=== PATIENT | male | born 1935 | race Caucasian/White ===

== ENCOUNTER 2017-09-11 01:25 | Observation (INO) | payer OTHER ==
[~2017-09-11] VITALS: Ht 175.3 cm; Wt 73.4 kg
[~2017-09-11 01:25] MED LIST: ACET300T3 PO; ASCO500T16 PO; ASPI1TAB83; FLUT0.0529 NAE; LORA10TA51 PO; MECL1TAB40 PO; MULT-506 PO; NUTRCAP PO; NUTRTAB48 PO
[2017-09-11 02:02] LABS: BASO % 0.3 %; BASO ABS # 0.03 K/uL (0-0.2); EOS % 2.1 %; EOS ABS # 0.19 K/uL (0-0.5); HEMATOCRIT 43.6 % (42-52); HEMOGLOBIN 14.7 g/dL (14.0-18.0); IG# 0.02 K/uL (0.00-0.02); LYMPH % 26.9 %; LYMPH ABS # 2.39 K/uL (1.2-3.4); MEAN CELL VOLUME 99.8 fL (80-100); MEAN CORPUSCULAR HEMOGLOBIN 33.6 pg (25-34); MEAN CORPUSCULAR HGB CONC 33.7 g/dl (32-36); MEAN PLATELET VOLUME 10.6 fL (7.4-10.4); MONO % 9.1 %; MONO ABS # 0.81 K/uL (0.11-0.59); NEUT % 61.4 %; NEUT ABS # 5.44 K/uL (1.4-6.5); PLATELET COUNT 156 K/uL (130-400); RED CELL DISTRIBUTION WIDTH CV 12.3 % (11.5-14.5); RED CELL DISTRIBUTION WIDTH SD 44.9 fL (36.4-46.3); WHITE BLOOD COUNT 8.88 K/uL (4.8-10.8)
[2017-09-11 02:10] LABS: ALBUMIN 3.8 gm/dl (3.4-5.0); CALCIUM 8.7 mg/dl (8.5-10.1); CREATININE 1.38 mg/dl (0.60-1.40); POTASSIUM 3.6 mmol/L (3.5-5.1)
[2017-09-11 02:15] LABS: TOTAL PROTEIN 7.6 gm/dl (6.4-8.2)
[2017-09-11] MEDS ORDERED: SODIUM CHLORIDE 0.9% 1000ML 1,000 ML IV STA (02:18)
[2017-09-11] MEDS ORDERED: OPTIRAY 320 IV PRN (02:30)
[2017-09-11] MEDS ORDERED: ASPIRIN/ALUM/MAGNES/CAL CARB 325 MG TAB PO STA (04:26)
--- NOTE | 2017-09-11 04:29 | EMERGENCY ROOM VISIT NOTE ---
History Report prepared by Raffaele: Ab Mckeon Under the Supervision of: Dr. Faby Manzano D.O. First contact with patient: 01:38 Chief Complaint: SYNCOPE Stated Complaint: SYNCOPE Nursing Triage Summary: Patient arrived ALS for evaluation s/p syncope. Patient ran a 5K at 1800 and reports he tripped over a cone and fell onto knees. Patient has abrasions to bilateral knees. Patient ate a richard bar and drank gatorade afterward. Patient then went home and ate and drank a beer. Patient reports he looked out the window at some fireworks and doesn't remember after until his found him sitting on the floor. Patient reports he had a leg cramp earlier and on the way here as well as feeling thirsty. History of Present Illness The patient is a 82 year old male who presents to the Emergency Room with complaints of syncopal event. Patient states he was feeling his normal state of health earlier today and he ran a 5K. Patient states he had no symptoms while running. States at one point he did trip over a cone set of the race and fell onto his knees, denies any other trauma, denies head injury or LOC at that time. Patient states he got up and finished rest of the race and afterwards drinking Gatorade and ate a richard Dumont. States after that he went home was feeling in his usual state of health eating and drinking normally with no symptoms. States that in the evening about the time that he had come to bed he began to her some loud noises which she thought were perhaps fireworks. He states he got up went to the window was looking out the next thing he remembers he was sitting on the floor. Upon their arrival patient's , she states she will recent getting up to go to the window and remembers hearing a thud and went to find him sitting on the floor as well. She helped him get up and which chair and he appeared to be leaning forward as if trying to put his head between his legs, and then seemed to suddenly relaxer will not respond to her voice. He was at that point the called 911. By the time of EMS arrival, patient was awake and alert with no complaints and initially refused ambulance transport. Review of Systems See HPI for pertinent positives & negatives. A total of 10 systems reviewed and were otherwise negative. Past Medical & Surgical Medical Problems: (1) bph (2) occipital fracture Family History No pertinent family history stated. Social History Smoking Status: Never Smoker Drug Use: none Marital Status: Housing Status: lives with family Current/Historical Medications Scheduled Escitalopram Oxalate (Lexapro), 5 MG PO DAILY Scheduled PRN Ipratropium [place] (Nasal) (Ipratropium [place]), 2 SPRAYS BRIAN QID PRN for rhinitis Allergies Coded Allergies: No Known Allergies (Unverified , 09/11/17) Physical Exam Vital Signs Date Time Temp Pulse Resp B/P (MAP) Pulse Ox O2 Delivery O2 Flow Rate FiO2 09/11/17 05:16 53 18 114/63 98 Room Air 09/11/17 02:26 51 18 121/72 98 Room Air 09/11/17 01:37 45 09/11/17 01:28 96 Room Air 09/11/17 01:28 36.4 54 18 138/88 96 Room Air Physical Exam GENERAL: alert, well appearing, well nourished, no distress, non-toxic EYE EXAM: normal conjunctiva, PERRL and EOM's grossly intact OROPHARYNX: no exudate, no erythema, lips, buccal mucosa, and tongue normal and mucous membranes are moist NECK: supple, no nuchal rigidity, no adenopathy, non-tender LUNGS: Clear to auscultation. Normal chest wall mechanics, no wheezes/rhonchi/ rales HEART: no murmurs, S1 normal and S2 normal ABDOMEN: abdomen soft, non-tender, normo-active bowel sounds, no masses, no rebound or guarding. BACK: Back is symmetrical on inspection and there is no deformity, no midline tenderness, no CVA tenderness. SKIN: no rashes and no bruising UPPER EXTREMITIES: upper extremities are grossly normal. Normal range of motion , normal pulses. LOWER EXTREMITIES: No pitting edema. Normal range of motion, normal pulses, superficial abrasions noted bilateral knees and left soler. NEURO EXAM: Normal sensorium, cranial nerves II-XII grossly intact, normal speech, no gross weakness of arms, no [gross] weakness of legs. No drift. Finger to nose intact. Gross sensation intact. Medical Decision & Procedures ER Provider Diagnostic Interpretation: One View Chest X-ray interpreted by me: Mild cardiomegaly. No effusions. Mildly increased interstitial markings bilaterally. Prominent aortic knob. No consolidation. CT results per statrad and my review. CT HEAD: No ICH, mass effect or edema. No evidence of acute cortical stroke. Periventricular small vessel ischemic change. No midline shift or hydrocephalus. Diffuse parenchymal atrophy. Visualized sinuses and mastoid air cells are clear. CT CHEST With Contrast: No evidence of PE. Lungs are clear. No pleural effusions. No adenopathy. Heart is enlarged. No pericardial effusion. Multivessel coronary calcifications. Aorta is unremarkable. Exophytic right renal cyst. Laboratory Results 09/11/17 01:37 Red Blood Count 4.37, Mean Corpuscular Volume 99.8, Mean Corpuscular Hemoglobin 33.6, Mean Corpuscular Hemoglobin Concent 33.7, Mean Platelet Volume 10.6, Neutrophils (%) (Auto) 61.4, Lymphocytes (%) (Auto) 26.9, Monocytes (%) (Auto) 9.1, Eosinophils (%) (Auto) 2.1, Basophils (%) (Auto) 0.3, Neutrophils # (Auto) 5.44, Lymphocytes # (Auto) 2.39, Monocytes # (Auto) 0.81, Eosinophils # (Auto) 0.19, Basophils # (Auto) 0.03 09/11/17 01:37 Test 09/11/17 01:36 09/11/17 01:37 09/11/17 04:10 Bedside D-Dimer > 450 ng/mlFEU (0-450) Bedside Troponin I 0.050 ng/ml (0-0.045) White Blood Count 8.88 K/uL (4.8-10.8) Red Blood Count 4.37 M/uL (4.7-6.1) Hemoglobin 14.7 g/dL (14.0-18.0) Hematocrit 43.6 % (42-52) Mean Corpuscular Volume 99.8 fL (80-100) Mean Corpuscular Hemoglobin 33.6 pg (25-34) Mean Corpuscular Hemoglobin Concent 33.7 g/dl (32-36) Platelet Count 156 K/uL (130-400) Mean Platelet Volume 10.6 fL (7.4-10.4) Neutrophils (%) (Auto) 61.4 % Lymphocytes (%) (Auto) 26.9 % Monocytes (%) (Auto) 9.1 % Eosinophils (%) (Auto) 2.1 % Basophils (%) (Auto) 0.3 % Neutrophils # (Auto) 5.44 K/uL (1.4-6.5) Lymphocytes # (Auto) 2.39 K/uL (1.2-3.4) Monocytes # (Auto) 0.81 K/uL (0.11-0.59) Eosinophils # (Auto) 0.19 K/uL (0-0.5) Basophils # (Auto) 0.03 K/uL (0-0.2) RDW Standard Deviation 44.9 fL (36.4-46.3) RDW Coefficient of Variation 12.3 % (11.5-14.5) Immature Granulocyte % (Auto) 0.2 % Immature Granulocyte # (Auto) 0.02 K/uL (0.00-0.02) Prothrombin Time 10.6 SECONDS (9.0-12.0) Prothromb Time International Ratio 1.0 (0.9-1.1) Anion Gap 7.0 mmol/L (3-11) Est Creatinine Clear Calc Drug Dose 42.0 ml/min Estimated GFR () 55.2 Estimated GFR (Non- 47.6 BUN/Creatinine Ratio 26.7 (10-20) Calcium Level 8.7 mg/dl (8.5-10.1) Magnesium Level 2.4 mg/dl (1.8-2.4) Total Bilirubin 0.8 mg/dl (0.2-1) Aspartate Amino Transf (AST/SGOT) 32 U/L (15-37) Alanine Aminotransferase (ALT/SGPT) 25 U/L (12-78) Alkaline Phosphatase 105 U/L (45-117) Pro-B-Type Natriuretic Peptide 361 pg/ml (0-1800) Total Protein 7.6 gm/dl (6.4-8.2) Albumin 3.8 gm/dl (3.4-5.0) Globulin 3.8 gm/dl (2.5-4.0) Albumin/Globulin Ratio 1.0 (0.9-2) Urine Color YELLOW Urine Appearance CLEAR (CLEAR) Urine pH 5.0 (4.5-7.5) Urine Specific [place] 1.031 (1.000-1.030) Urine Protein NEG (NEG) Urine Glucose (UA) NEG (NEG) Urine Ketones NEG (NEG) Urine Occult Blood NEG (NEG) Urine Nitrite NEG (NEG) Urine Bilirubin NEG (NEG) Urine Urobilinogen NEG (NEG) Urine Leukocyte Esterase NEG (NEG) Laboratory results per my review. Medications Administered Medications (Trade) Dose Ordered Sig/Claire Route Start Time Stop Time Status Last Admin Dose Admin Sodium Chloride 1,000 ml @ 999 mls/hr Q1H1M STAT IV 09/11/17 02:18 09/11/17 03:18 DC 09/11/17 02:25 999 MLS/HR Aspirin/Aluminum/ Magnesium/Ca Carb (Ascriptin Tab) 325 mg NOW STAT PO 09/11/17 04:26 09/11/17 04:28 DC 09/11/17 05:16 325 MG ECG Indication: syncope Rate (beats per minute): 49 Rhythm: sinus bradycardia Findings: no acute ischemic change, no ectopy, other (Normal axis. Normal intervals. ) Comparison ECG Date: February 25, 2013 Change: no significant change ED Course 0132: The patient was evaluated in room B8. A complete history and physical exam was performed. 0440: Upon reevaluation, the patient is resting comfortably. I discussed the findings and the treatment plan with the patient. He expresses agreement and understanding. [facility] The patient will be evaluated for further management. Medical Decision Differential diagnosis: Etiologies such as vasovagal event, infection, hypoglycemia, electrolyte abnormalities, cardiac sources, intracerebral event, toxicologic, neurologic, as well as others were entertained. Patient well-appearing here and without complaint. While troponin may be secondary to recent vigorous exercise, concern given patient's age and coronary artery calcifications noted on CAT scan. Patient with a normal, nonfocal neuro exam bedside, doubt sick be related to CVA, dissection, cerebellar infarct or bleed. Patient with no other symptoms or findings to suggest occult infectious etiology. Doubt related to trauma from mild fall, only superficial abrasions noted on patient's bilateral knees. No dysrhythmias noted on telemetry. Patient's labs otherwise stable and reassuring, and imaging otherwise unremarkable. Patient verbalized understanding of all results was agreeable with plan. Medication Reconcilliation Current Medication List: was personally reviewed by me Blood Pressure Screening Patient's blood pressure: Normal blood pressure Blood pressure disposition: Did not require urgent referral Consults Time Called: [phone] Consulting Physician: Dr. Shauna Abraham Hospitalist Returned Call: [phone] I reviewed the patient's case with Dr. Villatoro. Bird will evaluate the patient for further management. Impression Primary Impression: Syncope Additional Impression: Elevated troponin Scribe Attestation The scribe's documentation has been prepared under my direction and personally reviewed by me in its entirety. I confirm that the note above accurately reflects all work, treatment, procedures, and medical decision making performed by me. Departure Information Dispostion Being Evaluated By Hospitalist Referrals James Hernandez M.D. (PCP) Patient Instructions My [facility] Problem Qualifiers Primary Impression: Syncope Syncope type: unspecified Qualified Codes: R55 - Syncope and collapse
[2017-09-11] MEDS ORDERED: ESCI1TAB6 PO (05:24)
[2017-09-11] MEDS ORDERED: IPRA0.06 NAE (05:24)
[2017-09-11] MEDS ORDERED: ONDANSETRON INJ 2 MG/ML 2 ML VIAL IV PRN (06:30)
[2017-09-11] MEDS ORDERED: ACETAMINOPHEN 325 MG TAB PO PRN (06:30)
--- NOTE | 2017-09-11 06:37 | History and Physical ---
History & Physical Date & Time of Service: Sep 11, 2017 at 06:27 Chief Complaint: Syncope Primary Care Physician: James Hernandez M.D. History of Present Illness Source: patient, clinic records 82 year old male with history of Chronic Rhinitis, BPH, Vertigo, presenting with syncope. Follows with Dr. Hernandez for PCP. Patient is quite active and runs 3x a week. Earlier today, he participated in a 5k run. During the event, he tripped on a cone and sustained abrasions on bilateral knees. He had a Jhonny bar and Gatorade after. He went home and had dinner- sandwich, orange and had a beer after. While sleeping, he was awakened by leg cramps. He stood up and went around the bed to go to the window to watch the fireworks. Patient then apparently passed out and was found by his on the floor. Patient denies dizziness, chest pain, dyspnea, palpitations, before or after the event. Denies confusion. He was then brought to the ER. At the ER, patient had stable BP, Hr 54, sinus rhythm, no EKG changes. Troponin noted to be 0.05. D dimer > 450. On exam, patient seen resting in bed, comfortable. Denies any active symptoms except mild knee pain on the abrasions. Past Medical/Surgical History Medical Problems: (1) bph Status: Chronic Family History Mother- CVA Social History Smoking Status: Never Smoker Smokeless Tobacco Use: No Alcohol Use: none Drug Use: none Marital Status: Immunizations History of Influenza Vaccine: Yes History of Tetanus Vaccine?: Yes History of Pneumococcal: Yes History of Hepatitis B Vaccine: Unknown Allergies Coded Allergies: No Known Allergies (Unverified , 09/11/17) Home Medications Scheduled Escitalopram Oxalate (Lexapro), 5 MG PO DAILY Scheduled PRN Ipratropium [place] (Nasal) (Ipratropium [place]), 2 SPRAYS BRIAN QID PRN for rhinitis Review of Systems Constitutional- no fever; no weight loss Eyes- no acute visual changes ENT- no sinus drainage; no pharyngitis Pulmonary- no cough, no wheezing, no shortness of breath Cardiac- no chest pain, no palpitations, no orthopnea, no dependent edema GI- no nausea, no vomiting, no diarrhea, no melena, no hematochezia - no dysuria, no hematuria Musculoskeletal- no arthralgias, no myalgias Derm- no rashes, no new skin lesions, no changing skin lesions Hematologic- no unusual bruising, no unusual bleeding Lymphatics- no adenopathy Endocrine- no polyuria or polydipsia; no heat or cold intolerance Neuro- no headaches, no focal neurologic symptoms Psych- no anxiety, no depression Physical Exam Vital Signs Date Time Temp Pulse Resp B/P (MAP) Pulse Ox O2 Delivery O2 Flow Rate FiO2 09/11/17 05:16 53 18 114/63 98 Room Air 09/11/17 02:26 51 18 121/72 98 Room Air 09/11/17 01:37 45 09/11/17 01:28 96 Room Air 09/11/17 01:28 36.4 54 18 138/88 96 Room Air General Appearance: WD/WN, no apparent distress Head: normocephalic, atraumatic Eyes: normal inspection, PERRL, EOMI, sclerae normal ENT: normal ENT inspection, hearing grossly normal, pharynx normal Neck: supple, no adenopathy, thyroid normal, no JVD, trachea midline Respiratory/Chest: chest non-tender, lungs clear, normal breath sounds, no respiratory distress, no accessory muscle use Cardiovascular: regular rate, rhythm, no edema, no JVD, no murmur, normal peripheral pulses Abdomen/GI: normal bowel sounds, non tender, soft Back: normal inspection, no CVA tenderness Extremities/Musculoskelatal: normal inspection, no calf tenderness, normal capillary refill, no pedal edema, normal range of motion, non-tender Neurologic/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: 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 tested, no motor/sensory deficits, alert, normal reflexes, oriented x 3 Skin: normal color, warm/dry, no rash Lymphatic: no adenopathy Diagnostics Laboratory Results Results Past 24 Hours Test 09/11/17 01:36 09/11/17 01:37 09/11/17 04:10 Range/Units Bedside D-Dimer > 450 0-450 ng/mlFEU Bedside Troponin I 0.050 0-0.045 ng/ml White Blood Count 8.88 4.8-10.8 K/uL Red Blood Count 4.37 4.7-6.1 M/uL Hemoglobin 14.7 14.0-18.0 g/dL Hematocrit 43.6 42-52 % Mean Corpuscular Volume 99.8 80-100 fL Mean Corpuscular Hemoglobin 33.6 25-34 pg Mean Corpuscular Hemoglobin Concent 33.7 32-36 g/dl Platelet Count 156 130-400 K/uL Mean Platelet Volume 10.6 7.4-10.4 fL Neutrophils (%) (Auto) 61.4 % Lymphocytes (%) (Auto) 26.9 % Monocytes (%) (Auto) 9.1 % Eosinophils (%) (Auto) 2.1 % Basophils (%) (Auto) 0.3 % Neutrophils # (Auto) 5.44 1.4-6.5 K/uL Lymphocytes # (Auto) 2.39 1.2-3.4 K/uL Monocytes # (Auto) 0.81 0.11-0.59 K/uL Eosinophils # (Auto) 0.19 0-0.5 K/uL Basophils # (Auto) 0.03 0-0.2 K/uL RDW Standard Deviation 44.9 36.4-46.3 fL RDW Coefficient of Variation 12.3 11.5-14.5 % Immature Granulocyte % (Auto) 0.2 % Immature Granulocyte # (Auto) 0.02 0.00-0.02 K/uL Prothrombin Time 10.6 9.0-12.0 SECONDS Prothromb Time International Ratio 1.0 0.9-1.1 Sodium Level 140 136-145 mmol/L Potassium Level 3.6 3.5-5.1 mmol/L Chloride Level 103 98-107 mmol/L Carbon Dioxide Level 30 21-32 mmol/L Anion Gap 7.0 3-11 mmol/L Blood Urea Nitrogen 37 7-18 mg/dl Creatinine 1.38 0.60-1.40 mg/dl Est Creatinine Clear Calc Drug Dose 42.0 ml/min Estimated GFR () 55.2 Estimated GFR (Non- 47.6 BUN/Creatinine Ratio 26.7 10-20 Random Glucose 75 70-99 mg/dl Calcium Level 8.7 8.5-10.1 mg/dl Magnesium Level 2.4 1.8-2.4 mg/dl Total Bilirubin 0.8 0.2-1 mg/dl Aspartate Amino Transf (AST/SGOT) 32 15-37 U/L Alanine Aminotransferase (ALT/SGPT) 25 12-78 U/L Alkaline Phosphatase 105 45-117 U/L Pro-B-Type Natriuretic Peptide 361 0-1800 pg/ml Total Protein 7.6 6.4-8.2 gm/dl Albumin 3.8 3.4-5.0 gm/dl Globulin 3.8 2.5-4.0 gm/dl Albumin/Globulin Ratio 1.0 0.9-2 Urine Color YELLOW Urine Appearance CLEAR CLEAR Urine pH 5.0 4.5-7.5 Urine Specific [place] 1.031 1.000-1.030 Urine Protein NEG NEG Urine Glucose (UA) NEG NEG Urine Ketones NEG NEG Urine Occult Blood NEG NEG Urine Nitrite NEG NEG Urine Bilirubin NEG NEG Urine Urobilinogen NEG NEG Urine Leukocyte Esterase NEG NEG Diagnostic Radiology CT chest: no PE per initial read CT head: no acute findings per initial read Impression Assessment and Plan 82 year old male with history of Chronic Rhinitis, BPH, Vertigo, presenting with syncope. SYNCOPE POSSIBLE ORTHOSTASIS - check orthostatic VS IV NSS R/O ARRHYTHMIA - check echo other work up: - no PE per initial CT chest read ELEVATED D DIMER - no PE per initial CT chest read - Leg Doppler US: pending MILD TROPONIN ELEVATION - doubt ACS no cardiac symptoms - ff up cardiac markers Echo DVT PROPHYLAXIS SCDs FULL CODE PER PATIENT ANTICIPATE D/C HOME WHEN MEDICALLY STABLE FF UP WITH DR. HERNANDEZ FOR PCP VTE Prophylaxis Given or contraindicated: SCD's
--- NOTE | 2017-09-11 07:35 | DIAGNOSTIC IMAGING REPORT ---
ULTRASOUND LEFT LOWER EXTREMITY VENOUS CLINICAL HISTORY: Left leg pain. Syncope. COMPARISON STUDY: No priors. TECHNIQUE: Real-time, grayscale, and color Doppler sonography of the deep veins of the left lower extremity was performed from the inguinal crease to the calf. Compression and augmentation were utilized. FINDINGS: There is no sonographic evidence of deep venous thrombosis identified in the left lower extremity. The common femoral, superficial femoral, and popliteal veins are patent and normally compressible. The greater saphenous vein and the profunda femoris vein at the junction with the common femoral vein are clear. The visualized calf veins are patent. IMPRESSION: There is no sonographic evidence of deep venous thrombosis identified in the left lower extremity. Electronically signed by: Jamir Ybarra M.D. 09/11/2017 7:34 AM Dictated Date/Time: 09/11/2017 7:34 AM
--- NOTE | 2017-09-11 07:54 | DIAGNOSTIC IMAGING REPORT ---
CT ANGIOGRAM OF THE CHEST CLINICAL HISTORY: Syncope. COMPARISON STUDY: Chest x-ray dated 09/11/2017. TECHNIQUE: Following the IV administration of 91 cc of Optiray 320, CT angiogram of the chest was performed from the upper abdomen to the thoracic inlet utilizing the pulmonary embolus protocol. Images are reviewed in the axial, sagittal, and coronal planes. 3-D MIPS images are created and assessed. IV contrast was administered without complication. A dose lowering technique was utilized adhering to the principles of ALARA. The Examination is modestly degraded by motion artifact. CT DOSE: 311.16 mGy.cm FINDINGS: Thyroid: Imaged portions of the thyroid gland are normal in size and attenuation. Thoracic aorta: The thoracic aorta is normal in caliber and demonstrates standard 3-vessel arch anatomy. The thoracic aorta is not well opacified. Pulmonary vasculature: The main pulmonary arteries are dilated consistent with pulmonary artery hypertension. There are no filling defects identified in main, lobar, or segmental pulmonary branches to suggest pulmonary embolus. Heart: The heart is markedly enlarged and without pericardial effusion. The coronary arteries are densely calcified. Lungs and pleural spaces: Evaluation of the lung parenchyma is degraded by motion artifact. The trachea and central airways are clear. Dependent atelectasis is noted. There is no airspace consolidation typical for pneumonia or pleural effusion. Mediastinum: There is no mediastinal lymphadenopathy. Lizz: Clear. Axillae: There is no axillary lymphadenopathy. Upper abdomen: There is a small hiatal hernia. A 3 cm cyst arises from the upper pole of the right kidney. Reflux of contrast into the IVC and hepatic veins suggests cardiac dysfunction. Skeletal structures: The skeletal structures are osteopenic. Mild degenerative change is noted throughout the thoracic spine and in the shoulders. No lytic or blastic bony lesions are seen. IMPRESSION: 1. There is no evidence of pulmonary embolus in the main, lobar, or segmental pulmonary arteries. 2. Marked cardiomegaly. 3. No airspace consolidation is identified typical for pneumonia and there is no pleural effusion. 4. Additional findings as above. Electronically signed by: Jamir Ybarra M.D. 09/11/2017 7:53 AM Dictated Date/Time: 09/11/2017 7:48 AM
[2017-09-11 08:03] VITALS: BP 130/76; PULSE 50; TEMP 36.3; O2SAT 98
[2017-09-11 08:06] VITALS: BP 130/76; PULSE 50; TEMP 36.3; O2SAT 98; Ht 175.3 cm; Wt 73.4 kg
[2017-09-11 08:36] LABS: CKMB 6.6 ng/ml (0.5-3.6)
[2017-09-11] MEDS ORDERED: NSS + 20MEQ KCL 1000ML 1,000 ML IV SCH (09:00)
[2017-09-11] MEDS: ESCITALOPRAM OXALATE 10 MG TAB PO SCH (09:04)
--- NOTE | 2017-09-11 09:40 | DIAGNOSTIC IMAGING REPORT ---
CT SCAN OF THE BRAIN WITHOUT IV CONTRAST CLINICAL HISTORY: Syncope. COMPARISON STUDY: CT of the brain dated 02/25/2013. TECHNIQUE: Unenhanced axial CT scan of the brain is performed from the vertex to the skull base. A dose lowering technique was utilized adhering to the principles of ALARA. CT DOSE: 614.27 mGy.cm FINDINGS: Brain parenchyma: There are age-related involutional changes noting moderate subcortical and periventricular microangiopathic change. There is no hemorrhage, mass effect, or evidence of acute territorial ischemia by CT criteria. Luis-white matter is preserved. No extra-axial fluid collection is seen. Ventricles, sulci, cisterns: Prominent secondary to involutional change. Intracranial vasculature: There is atherosclerotic calcification of the cavernous carotid and vertebral arteries. Calvarium: The skeletal structures are osteopenic. No depressed calvarial fracture is seen. Sinuses and mastoids: The visualized paranasal sinuses are clear. The mastoid air cells are well pneumatized. Orbits: The bony orbits are grossly intact. There are bilateral ocular lens implants. IMPRESSION: There is no hemorrhage, mass effect, or evidence of acute territorial ischemia by CT criteria. Electronically signed by: Jamir Ybarra M.D. 09/11/2017 9:39 AM Dictated Date/Time: 09/11/2017 9:37 AM
[2017-09-11] MEDS ORDERED: POTASSIUM CHLORIDE 20 MEQ TABCR PO ONE (10:15)
--- NOTE | 2017-09-11 10:23 | DIAGNOSTIC IMAGING REPORT ---
SINGLE VIEW CHEST CLINICAL HISTORY: Syncope. FINDINGS: An AP, portable, upright chest radiograph is obtained. No prior studies are available for comparison at the time of dictation. The examination is degraded by portable technique and patient rotation. The cardiomediastinal heart is enlarged and there is atherosclerotic calcification of the thoracic area. There is prominence of the central pulmonary vessels. Minimal bibasilar atelectasis is observed. No airspace consolidation or large pleural effusion is identified. No pneumothorax is seen. The skeletal structures are osteopenic. The bony thorax is grossly intact. IMPRESSION: 1. Cardiomegaly with prominence of the central pulmonary vessels. Correlate clinically for evidence of mild congestive failure. 2. No airspace consolidation or large pleural effusion is identified. Electronically signed by: Jamir Ybarra M.D. 09/11/2017 10:21 AM Dictated Date/Time: 09/11/2017 10:21 AM
[2017-09-11 11:17] VITALS: BP_SYST 110; BP_SYST 120; BP_SYST 130; BP_DIAS 65; BP_DIAS 71; BP_DIAS 74; PULSE 47; PULSE 60; TEMP 36.5; O2SAT 97
[2017-09-11] MEDS ORDERED: IV FLUIDS COMPLETED PRN (12:45)
--- NOTE | 2017-09-11 14:51 | ECHOCARDIOGRAM REPORT ---
*NOTICE TO RECEIVING CONSTITUTION PARTY AGENCY This information is strictly Confidential and protected under [place] law. [place] law prohibits you from making any further disclosure of this information unless further disclosure is expressly permitted by the written consent of the person to whom it pertains or is authorized by law. A general authorization for the release of medical or other information is not sufficient for this purpose. Hospital accepts no responsibility if the information is made available to any other person, INCLUDING THE PATIENT. Interpretation Summary * Name: HUMERA HERNADEZ Study Date: 09/11/2017 01:23 PM BP: 120/71 mmHg * Patient Location: [facility] HR: 52 * : 1935 (M/d/yyyy) Gender: Male Height: 69 in * Age: 82 yrs Ethnicity: [place] Weight: 164 lb * Ordering Physician: Los Villatoro * Performed By: Shannon Davila RDCS * * Reason For Study: SYNCOPE * BSA: 1.9 m2 * The study was technically adequate. * -- Conclusions -- * Sinsus bradycardia at 50 bpm was present during the echocardiogram. * The left ventricle is normal in size. * There is moderate concentric left ventricular hypertrophy. * The left ventricular wall motion is normal. * The LV Ejection Fraction = 60-65%. * The right ventricle is normal in size and function. * The right atrium is mildly dilated. * Mild aortic regurgitation. * There is mild tricuspid regurgitation. * Doppler findings do not suggest pulmonary hypertension. * There is mild mitral regurgitation. Procedure Details * A complete two-dimensional transthoracic echocardiogram was performed (2D, M-mode, Doppler and color flow Doppler). Left Ventricle * The left ventricle is normal in size. * There is moderate concentric left ventricular hypertrophy. * Left ventricular systolic function is normal. * Ejection Fraction = 60-65%. * The left ventricular wall motion is normal. Right Ventricle * The right ventricle is normal in size and function. * The right ventricular systolic function is normal as assessed by tricuspid annular plane systolic excursion (TAPSE) (normal >1.5 cm). Atria * The left atrial size is normal. * The right atrium is mildly dilated. * There is no evidence of atrial septal defect, but resolution does not allow assessment for a patent foramen ovale. Mitral Valve * The mitral valve is normal. * There is no mitral valve stenosis. * There is mild mitral regurgitation. Tricuspid Valve * The tricuspid valve is normal. * There is no tricuspid stenosis. * There is mild tricuspid regurgitation. * Doppler findings do not suggest pulmonary hypertension. Aortic Valve * The aortic valve is trileaflet. * Aortic stenosis is absent. * Mild aortic regurgitation. Pulmonic Valve * The pulmonary valve is not well seen, but the Doppler examination is normal without significant regurgitation or stenosis. Great Vessels * The aortic root and proximal ascending aorta are normal sized. Pericardium/Pleural * There is no pericardial effusion. Great Vessels * Normal inferior vena cava diameter and respiratory variation suggests normal central venous pressure. Left Ventricular Diastolic Function * Grade I diastolic dysfunction, (abnormal relaxation pattern). MMode 2D Measurements and Calculations IVSd 1.3 cm IVSs 1.8 cm LVIDd 4.4 cm LVIDs 2.8 cm LVPWd 1.4 cm LVPWs 1.7 cm IVS/LVPW 0.92 FS 36.2 % EDV(Teich) 86.7 ml ESV(Teich) 29.4 ml EF(Teich) 66.1 % EDV(cubed) 84.0 ml ESV(cubed) 21.8 ml EF(cubed) 74.0 % % IVS thick 44.7 % % LVPW thick 25.3 % LV mass(C)d 221.5 grams LV mass(C)dI 116.7 grams/m\S\2 LV mass(C)s 198.5 grams LV mass(C)sI 104.5 grams/m\S\2 SV(Teich) 57.4 ml SI(Teich) 30.2 ml/m\S\2 SV(cubed) 62.2 ml SI(cubed) 32.8 ml/m\S\2 Ao root diam 3.2 cm Ao root area 8.2 cm\S\2 LA dimension 4.0 cm LA/Ao 1.2 LVAd ap4 29.5 cm\S\2 LVLd ap4 7.7 cm EDV(MOD-sp4) 91.4 ml EDV(sp4-el) 96.0 ml LVAs ap4 15.2 cm\S\2 LVLs ap4 6.6 cm ESV(MOD-sp4) 30.1 ml ESV(sp4-el) 29.4 ml EF(MOD-sp4) 67.1 % EF(sp4-el) 69.4 % LVAd ap2 28.0 cm\S\2 LVLd ap2 7.8 cm EDV(MOD-sp2) 85.9 ml EDV(sp2-el) 85.6 ml LVAs ap2 14.9 cm\S\2 LVLs ap2 7.1 cm ESV(MOD-sp2) 31.1 ml ESV(sp2-el) 26.6 ml EF(MOD-sp2) 63.8 % EF(sp2-el) 69.0 % LVLd %diff 1.2 % EDV(MOD-bp) 87.8 ml LVLs %diff 6.1 % ESV(MOD-bp) 29.3 ml EF(MOD-bp) 66.6 % SV(MOD-sp4) 61.3 ml SI(MOD-sp4) 32.3 ml/m\S\2 SV(MOD-sp2) 54.8 ml SI(MOD-sp2) 28.9 ml/m\S\2 SV(MOD-bp) 58.5 ml SI(MOD-bp) 30.8 ml/m\S\2 SV(sp4-el) 66.6 ml SI(sp4-el) 35.1 ml/m\S\2 SV(sp2-el) 59.0 ml SI(sp2-el) 31.1 ml/m\S\2 Doppler Measurements and Calculations MV E max rich 58.6 cm/sec MV A max rich 54.4 cm/sec MV E/A 1.1 MV dec time 0.56 sec Ao V2 max 169.9 cm/sec Ao max PG 11.5 mmHg Ao max PG (full) 4.5 mmHg AI max rich 353.3 cm/sec AI max PG 49.9 mmHg AI dec slope 118.6 cm/sec\S\2 AI P1/2t 872.4 msec LV V1 max PG 7.1 mmHg LV V1 max 132.9 cm/sec TR max rich 272.4 cm/sec
[2017-09-11 15:41] VITALS: BP 112/72; PULSE 48; TEMP 36.3; O2SAT 97
--- NOTE | 2017-09-11 15:42 | Cardiology Consultation ---
Cardiology Consultation Date of Consultation: Sep 11, 2017 History of Present Illness Hernandez Davis is a 82 year old male seen in cardiology consultation per the request of Dr. Camilo Saavedra for the evaluation of syncope and mild elevation in cardiac isoenzymes. The patient's primary care provider is Dr. James Hernandez. He has not previously followed with cardiology. The patient describes himself as being very physically active. He runs 3 days per week typically completing 4-5 miles in a one-hour session. He has completed marathons in the past and computed [employer] in 1987. Last evening he was in his normal state of health when he participated in the First Night 5K run in [facility]. The weather conditions were very cold. Early on the wrong he apparently tripped over a traffic code suffered abrasions to his lower legs bilaterally. He was helped up by bystanders continued. He stated that the fall weight loses rhythm but overall did not feel that he was in significant distress. He finished the running about 40 minutes which was a few minutes slower than last year. He described no chest discomfort or shortness of breath. He does not believe he passed out while running but rather tripped on the cones. He had a Gatorade and a sports bar after the run and then returned home and had dinner and a beer. He states he woke up at about midnight with severe cramping in his left calf muscle. He had to get up out of bed to try to walk this off by that time he recalls watching the fireworks outside of his window. He states with walking his legs felt a little bit better. His spouse then recalls hearing him moaning and calling to her from another room, she found him on the ground in her bedroom and he lost consciousness for a few moments before spontaneously awakening. He was brought to the emergency room by EMS. Initial EKG on 09/11/2017 at 1:28 AM revealed sinus bradycardia at 49 bpm with mild nonspecific ST abnormality. Overall the tracing was unchanged compared to her prior 2012. Repeat EKG this morning at 954 revealed sinus bradycardia cardiac 56 bpm, left ventricular hypertrophy by voltage criteria was noted. His initial [id number] troponin was mildly elevated at 0.05 with subsequent mild elevation at 7:52 AM of 0.59 ng/ml with elevated CPK of 575 units per liter. A repeat set of cardiac enzymes at 1423 this afternoon revealed improvement in the troponin to 0.31 ng/ml however the CPK remained elevated at [address] of the chest revealed no evidence of pulmonary embolism, the heart was noted to be enlarged by CT criteria with noted mild dilatation of the pulmonary arteries. The coronary arteries were noted to be densely calcified. I reviewed the images myself and dense coronary artery calcification is noted throughout the course of the left anterior descending artery artery and circumflex. The right coronary artery is not well-visualized. Past Medical/Surgical History Problem List: Medical Problems: (1) bph (2) occipital fracture History Past Medical History: . Benign prostatic hypertrophy 2. Head trauma occurred in 2012 when he was struck by a dog while he was running with a resultant fall. Past Surgical History: Remote tonsillectomy Dental work Social History: he is a nonsmoker. Family History: He believes both of his parents had strokes in old age. No known heart disease. Review Of Systems See above for pertinent positives & negatives. A total of 10 systems reviewed and were otherwise negative. Allergies Coded Allergies: No Known Allergies (Unverified , 09/11/17) Medications Reported Home Medications Medications Dose Route/Sig Max Daily Dose Days Date Category Lexapro (Escitalopram Oxalate) 5 Mg Tab 5 Mg PO DAILY 09/11/17 Reported Ipratropium [place] (Ipratropium [place] (Nasal)) 0.06 % Spr 2 Sprays BRIAN QID PRN 09/11/17 Reported Physical Exam Vital Signs (Last 8hrs): Last 8 Hrs Date Time Temp Pulse Resp B/P (MAP) Pulse Ox O2 Delivery O2 Flow Rate FiO2 09/11/17 12:00 Room Air 09/11/17 11:17 36.5 47 18 110/65 (80) 97 Room Air 60 130/74 (92) 60 120/71 (87) 09/11/17 08:06 36.3 50 18 130/76 98 Room Air 09/11/17 08:03 36.3 50 18 130/76 (94) 98 Room Air 09/11/17 07:34 50 18 101/58 97 Room Air General Appearance: Alert and Oriented x3. NAD. Head: Normocephalic Atraumatic. Eyes: PERRLA, EOMI, conjunctiva and sclera clear Neck: Supple. No carotid bruits noted. No JVD. No HJD. Respiratory: Breath sounds clear to auscultation bilaterally. No w/r/r. Cardiovascular: Reg rate and rhythm. S1 and S2 noted. No murmurs, rubs, gallops. PMI non displace. Abdomen: Normal bowel sounds, soft nontender. no abdominal bruits. Extremities: No edema, no clubbing or cyanosis. distal pulses 2/4 bilaterally. Neuro: No focal deficits. Psychiatric: Normal affect. Data Last 24 Hours Test 09/11/17 01:36 09/11/17 01:37 09/11/17 04:10 09/11/17 07:52 Bedside D-Dimer > 450 ng/mlFEU Bedside Troponin I 0.050 ng/ml White Blood Count 8.88 K/uL Red Blood Count 4.37 M/uL Hemoglobin 14.7 g/dL Hematocrit 43.6 % Mean Corpuscular Volume 99.8 fL Mean Corpuscular Hemoglobin 33.6 pg Mean Corpuscular Hemoglobin Concent 33.7 g/dl Platelet Count 156 K/uL Mean Platelet Volume 10.6 fL Neutrophils (%) (Auto) 61.4 % Lymphocytes (%) (Auto) 26.9 % Monocytes (%) (Auto) 9.1 % Eosinophils (%) (Auto) 2.1 % Basophils (%) (Auto) 0.3 % Neutrophils # (Auto) 5.44 K/uL Lymphocytes # (Auto) 2.39 K/uL Monocytes # (Auto) 0.81 K/uL Eosinophils # (Auto) 0.19 K/uL Basophils # (Auto) 0.03 K/uL RDW Standard Deviation 44.9 fL RDW Coefficient of Variation 12.3 % Immature Granulocyte % (Auto) 0.2 % Immature Granulocyte # (Auto) 0.02 K/uL Prothrombin Time 10.6 SECONDS Prothromb Time International Ratio 1.0 Sodium Level 140 mmol/L Potassium Level 3.6 mmol/L Chloride Level 103 mmol/L Carbon Dioxide Level 30 mmol/L Anion Gap 7.0 mmol/L Blood Urea Nitrogen 37 mg/dl Creatinine 1.38 mg/dl Est Creatinine Clear Calc Drug Dose 42.0 ml/min Estimated GFR () 55.2 Estimated GFR (Non- 47.6 BUN/Creatinine Ratio 26.7 Random Glucose 75 mg/dl Calcium Level 8.7 mg/dl Magnesium Level 2.4 mg/dl Total Bilirubin 0.8 mg/dl Aspartate Amino Transf (AST/SGOT) 32 U/L Alanine Aminotransferase (ALT/SGPT) 25 U/L Alkaline Phosphatase 105 U/L Pro-B-Type Natriuretic Peptide 361 pg/ml Total Protein 7.6 gm/dl Albumin 3.8 gm/dl Globulin 3.8 gm/dl Albumin/Globulin Ratio 1.0 Urine Color YELLOW Urine Appearance CLEAR Urine pH 5.0 Urine Specific [place] 1.031 Urine Protein NEG Urine Glucose (UA) NEG Urine Ketones NEG Urine Occult Blood NEG Urine Nitrite NEG Urine Bilirubin NEG Urine Urobilinogen NEG Urine Leukocyte Esterase NEG Total Creatine Kinase 575 U/L Creatine Kinase MB 6.6 ng/ml Creatine Kinase MB Ratio 1.1 Troponin I 0.059 ng/ml Test 09/11/17 14:23 Total Creatine Kinase 508 U/L Creatine Kinase MB 5.0 ng/ml Creatine Kinase MB Ratio 1.0 Troponin I 0.031 ng/ml * -- Conclusions -- * Sinsus bradycardia at 50 bpm was present during the echocardiogram. * The left ventricle is normal in size. * There is moderate concentric left ventricular hypertrophy. * The left ventricular wall motion is normal. * The LV Ejection Fraction = 60-65%. * The right ventricle is normal in size and function. * The right atrium is mildly dilated. * Mild aortic regurgitation. * There is mild tricuspid regurgitation. * Doppler findings do not suggest pulmonary hypertension. * There is mild mitral regurgitation. Telemetry reveals sinus rhythm and sinus bradycardia in the 45-55 bpm minute range EKG tracings as outlined above Assessment & Plan Impression: 82-year-old male 1. Syncopal episode, perhaps vasovagal in etiology as he had significant painful leg cramping took place just before the episode 2. Sinus bradycardia, without significant AV block noted on telemetry thus far 3. Elevated CPK likely due to skeletal muscle breakdown 4. very mild troponin elevation 5. Moderate concentric left ventricular hypertrophy, normal resting wall motion , LVEF 60-65%, with mild aortic regurgitation, mild tricuspid regurgitation, mild mitral regurgitation, no pulmonary hypertension based on Doppler findings on echocardiogram Plan: The patient could've very well just had a vasovagal event. He does have a resting heart rate of about 50 bpm, and of course he could've had transient symptomatic bradycardia. I think his low heart rates though are a marker of his underlying conditioning. Is mild troponin elevation together with the elevation in his CPK is likely due to the significant musculoskeletal effort fourth with his athletic endeavors leading up to last night's events. At this point will continue his IV fluids and will repeat a chemistry panel tomorrow. The patient makes it clear that his exercise routine is very important to him. I'm concerned about his potential risk of underlying coronary heart disease especially given the dense coronary artery calcification noted on the CT of the chest. Although his syncopal event could've been due to an ischemic etiology, I think the causative likelihood of this is relatively low, but I do think that given his mild elevation in his troponin and his overall history, that would be of benefit for us to proceed with a stress echocardiogram for further risk stratification for he returns to his exercise program. He was agreeable to this and this will take place tomorrow. I've requested a lipid panel to be performed tomorrow. Depending upon the results of the stress test, prophylactic therapy with low-dose aspirin and statin may be prudent for plaque stabilization purposes.
--- NOTE | 2017-09-11 17:05 | Progress Note ---
Progress Note Date of Service Sep 11, 2017. Progress Note Subjective: Patient seen at bedside resting on bed. No acute complaints or pain Objective General Appearance: no apparent distress Head: normocephalic, atraumatic Eyes: normal inspection, EOMI, sclerae normal ENT: normal ENT inspection, hearing grossly normal, pharynx normal Neck: supple, no adenopathy, thyroid normal, no JVD, trachea midline Respiratory/Chest: chest non-tender, lungs clear, normal breath sounds, no respiratory distress, no accessory muscle use Cardiovascular: regular rate, rhythm, no edema, no JVD, no murmur, normal peripheral pulses Abdomen/GI: normal bowel sounds, non tender, soft Back: normal inspection, no CVA tenderness Extremities/Musculoskelatal: normal inspection, no calf tenderness, normal capillary refill, no pedal edema, normal range of motion, non-tender Neurologic/Psych: no motor/sensory deficits, alert, normal reflexes, oriented x 3 A/P: 82-year-old male with syncopal episode, perhaps vasovagal in etiology as he had significant painful leg cramping took place just before the episode, sinus bradycardia, wild mild troponin elevation, and is an avid runner SYNCOPE workup -possible Vasovagal -Head CT negative -D-dimer elevated but CTA negative for PE -Echocardiogram 09/11/2017 Sinus bradycardia at 50 bpm was present during the echocardiogram. The left ventricle is normal in size. There is moderate concentric left ventricular hypertrophy. The left ventricular wall motion is normal. The LV Ejection Fraction = 60-65%. The right ventricle is normal in size and function. The right atrium is mildly dilated. Mild aortic regurgitation. There is mild tricuspid regurgitation. Doppler findings do not suggest pulmonary hypertension. There is mild mitral regurgitation. -As per cardiology, patient to get stress test on 09/12/2017. Is to be NPO after midnight except medications for test Elevated CK likely from exercise, hydration encouraged DVT PROPHYLAXIS SCDs FULL CODE PER PATIENT
[2017-09-11 19:45] VITALS: BP 109/66; PULSE 52; TEMP 36.5; O2SAT 96
[2017-09-11 20:08] VITALS: O2SAT 96
[2017-09-12] VITALS: BP 108/63; PULSE 48; TEMP 36.7; O2SAT 92
[2017-09-12 00:20] VITALS: O2SAT 92
[2017-09-12 04:00] VITALS: BP 125/70; PULSE 51; TEMP 36.7; O2SAT 92; O2SAT 97
[2017-09-12 07:21] VITALS: BP 115/63; PULSE 43; TEMP 36.6; O2SAT 95
[2017-09-12 07:37] LABS: BASO % 0.5 %; BASO ABS # 0.03 K/uL (0-0.2); EOS % 4.4 %; EOS ABS # 0.26 K/uL (0-0.5); HEMATOCRIT 38.2 % (42-52); HEMOGLOBIN 12.6 g/dL (14.0-18.0); IG# 0.01 K/uL (0.00-0.02); LYMPH % 25.3 %; LYMPH ABS # 1.48 K/uL (1.2-3.4); MEAN CELL VOLUME 99.2 fL (80-100); MEAN CORPUSCULAR HEMOGLOBIN 32.7 pg (25-34); MEAN PLATELET VOLUME 10.3 fL (7.4-10.4); MONO % 9.2 %; MONO ABS # 0.54 K/uL (0.11-0.59); NEUT % 60.4 %; NEUT ABS # 3.54 K/uL (1.4-6.5); PLATELET COUNT 133 K/uL (130-400); RED CELL DISTRIBUTION WIDTH CV 12.5 % (11.5-14.5); RED CELL DISTRIBUTION WIDTH SD 45.4 fL (36.4-46.3); WHITE BLOOD COUNT 5.86 K/uL (4.8-10.8)
[2017-09-12 08:15] LABS: ALBUMIN 3.2 gm/dl (3.4-5.0); ALT/SGPT 21 U/L (12-78); BLOOD UREA NITROGEN 32 mg/dl (7-18); CALCIUM 8.3 mg/dl (8.5-10.1); CARBON DIOXIDE 29 mmol/L (21-32); CHOLESTEROL 142 mg/dl (0-200); CREATININE 1.26 mg/dl (0.60-1.40); GLUCOSE 88 mg/dl (70-99); POTASSIUM 4.6 mmol/L (3.5-5.1); SODIUM 143 mmol/L (136-145)
[2017-09-12 08:21] LABS: ALKALINE PHOSPHATASE 76 U/L (45-117); AST/SGOT 30 U/L (15-37); CKMB 2.9 ng/ml (0.5-3.6); LDL CHOLESTEROL CALCULATED 74 mg/dl; TOTAL PROTEIN 6.1 gm/dl (6.4-8.2)
[2017-09-12] MEDS ORDERED: ASPIRIN 81 MG ECTAB PO SCH (09:00)
[2017-09-12] MEDS: ESCITALOPRAM OXALATE 10 MG TAB PO SCH (09:19)
--- NOTE | 2017-09-12 11:31 | Cardiology Follow-Up ---
Subjective General Date of Service: Sep 12, 2017. Pt evaluation today including: conversation w/ patient, conversation w/ family , physical exam History of Present Illness The patient is a 82 year old male seen in cardiology follow up prior to, during , and after stress echocardiogram. Patient without recurrent syncope. Telemetry revealed predominant rhythm of sinus bradycardia in the 45-55 bpm range. There was a 6 beat run of supraventricular tachycardia noted this morning 09/12/17 on telemetry with rate of 100 bpm from which the patient was a symptomatic. The stress echocardiogram was negative for inducible ischemia with normal EKG and echo cardiographic response. His exercise tolerance was somewhat below that which was expected. He had difficulty maintaining pacer on the treadmill. This was likely in part due to the fact that he has a relatively short gait with slow flow turn over, and even though I attempted to adjust the pace and incline of the treadmill to accommodate for this, he could not just on the treadmill. This correlates well with his recent history of stating that he has difficulty maintaining his balance on uneven terrain such as uneven sidewalks. This likely contributed to his recent fall. Allergies Coded Allergies: No Known Allergies (Unverified , 09/11/17) Social History Smoking Status: Former Smoker Hx Tobacco Use In Past Year?: No Hx Alcohol Use - Type And Amou: Yes (occasionally a beer) Hx Substance Use - Type And Am: No Problem List Medical Problems: (1) Elevated troponin Status: Acute (2) Syncope Status: Acute Physical Exam Vital Signs Last Vital Signs Documentation Date Time Temp Pulse Resp B/P (MAP) Pulse Ox O2 Delivery O2 Flow Rate FiO2 09/12/17 08:00 Room Air 09/12/17 07:21 36.6 43 18 115/63 (80) 95 Physical Exam Constitutional: Level of Distress: NAD Head: normocephalic Neck: supple Lungs: Auscultation: no wheezing, no rales/crackles, no rhonchi Cardiovascular: Heart Auscultation: RRR, no murmurs, no rubs Abdomen: Inspection & Palpation: soft Extremities: no cyanosis, no edema Neurologic: Gait & Station: pertinent finding (no focal deficits) Assessment and Plan Assessment and Plan Last Resulted 09/12/17 07:06 Red Blood Count 3.85, Mean Corpuscular Volume 99.2, Mean Corpuscular Hemoglobin 32.7, Mean Corpuscular Hemoglobin Concent 33.0, Mean Platelet Volume 10.3, Neutrophils (%) (Auto) 60.4, Lymphocytes (%) (Auto) 25.3, Monocytes (%) (Auto) 9.2, Eosinophils (%) (Auto) 4.4, Basophils (%) (Auto) 0.5, Neutrophils # (Auto) 3.54, Lymphocytes # (Auto) 1.48, Monocytes # (Auto) 0.54, Eosinophils # (Auto) 0.26, Basophils # (Auto) 0.03 Last Resulted 09/12/17 07:06 Past 24 Hours Test 09/11/17 14:23 09/12/17 07:06 Range/Units Creatine Kinase MB 5.0 H 2.9 0.5-3.6 ng/ml Creatine Kinase MB Ratio 1.0 0.8 0-3.0 Total Creatine Kinase 508 H 351 H 39-308 U/L Troponin I 0.031 < 0.015 0-0.045 ng/ml Total cholesterol 1 42 mg/dL, triglycerides 68, LDL 74, HDL 54 Impression: 82-year-old male 1. Syncopal episode, perhaps vasovagal in etiology as he had significant painful leg cramping took place just before the episode 2. Sinus bradycardia, without significant AV block noted on telemetry 3. Elevated CPK likely due to skeletal muscle breakdown 4. very mild troponin elevation 5. Moderate concentric left ventricular hypertrophy, normal resting wall motion , LVEF 60-65%, with mild aortic regurgitation, mild tricuspid regurgitation, mild mitral regurgitation, no pulmonary hypertension based on Doppler findings on echocardiogram Plan: Regarding the patient's syncopal episode. There had been initial concern because when the paramedics arrived to his home, initial EKG revealed sinus bradycardia in the 44-45 bpm range. It is clear, that he has a chronic stable resting heart rate however as I have spoken to him on multiple occasions during his hospital stay thus for when he has heart rates in the 40-50 bpm range on telemetry and feels fine. After 2 days of monitoring on telemetry he has demonstrated no evidence of high-grade AV block, of course occult worsening bradycardia could've occurred at the time of his event. I think that the most likely explanation for his syncopal event was that he had a vasovagal episode in the setting of severe pain and muscle cramping. I counseled him that it appears clear that he overdid it. He participated in a 5K on [place] in very cold temperature is where there was actually a frostbite morning outside. He had difficulty with his footing and had a fall at one point during the run and had to be helped up. I think his significant elevation in CPK levels noted during this hospital stay are likely a marker of significant skeletal muscle breakdown. He did have a mild elevation in his troponin on presentation and again yesterday morning at his since normalized. This was likely due to subclinical myocardial necrosis in the setting of left ventricular hypertrophy and significant overexertion. The patient was counseled that should he have any additional syncopal episodes that he needs to seek repeat emergency room care, notify his primary care provider, or notify me or my office as this may require additional workup if it occurs again. Regarding his coronary artery calcification. His cholesterol levels are actually quite well controlled. He states he is already taking low-dose aspirin as an outpatient for prophylaxis. His stress test was grossly negative , but his exercise capacity was limited due to difficulty keeping up with the treadmill, and he did have some degree of shortness of breath observed with exercise that was worse than what I had anticipated for that level of exertion. We discussed options. I do not think that his presentation was mediated by ischemic heart disease. He notes no recent chest discomfort or change in his activity tolerance. I think the most prudent thing to do is to recommend lifestyle change. He was counseled that he needs to pace himself a little bit better and to avoid overdoing it especially an extreme hot or cold temperatures. I counseled him that by avoiding these excessive exertional efforts such as performing a 5K run in freezing 0 wind chill temperatures that he would be better off performing low intensity treadmill or stationary bicycle or even elliptical exercise indoors during the winter. He was willing to accept this. Should he experience symptoms concerning for ischemia/angina in the future, would have low threshold to proceeding with coronary angiography. Recommend follow-up with PCP. Follow-up with cardiology in one to 2 months or sooner if necessary. Although I discussed placing him on statin for plaque stabilization. Given his excellent lipid levels, and his elevated CPK levels, I think it is most prudent to hold off on statin therapy at the present time and proceed with low-dose aspirin therapy. I had a long discussion with the patient after his stress test revealing the above. His spouse was present. I discussed his case and disposition plan with Dr. Saavedra. Laboratory Results Last 24 Hours Test 09/11/17 14:23 09/12/17 07:06 Total Creatine Kinase 508 U/L 351 U/L Creatine Kinase MB 5.0 ng/ml 2.9 ng/ml Creatine Kinase MB Ratio 1.0 0.8 Troponin I 0.031 ng/ml < 0.015 ng/ml White Blood Count 5.86 K/uL Red Blood Count 3.85 M/uL Hemoglobin 12.6 g/dL Hematocrit 38.2 % Mean Corpuscular Volume 99.2 fL Mean Corpuscular Hemoglobin 32.7 pg Mean Corpuscular Hemoglobin Concent 33.0 g/dl Platelet Count 133 K/uL Mean Platelet Volume 10.3 fL Neutrophils (%) (Auto) 60.4 % Lymphocytes (%) (Auto) 25.3 % Monocytes (%) (Auto) 9.2 % Eosinophils (%) (Auto) 4.4 % Basophils (%) (Auto) 0.5 % Neutrophils # (Auto) 3.54 K/uL Lymphocytes # (Auto) 1.48 K/uL Monocytes # (Auto) 0.54 K/uL Eosinophils # (Auto) 0.26 K/uL Basophils # (Auto) 0.03 K/uL RDW Standard Deviation 45.4 fL RDW Coefficient of Variation 12.5 % Immature Granulocyte % (Auto) 0.2 % Immature Granulocyte # (Auto) 0.01 K/uL Sodium Level 143 mmol/L Potassium Level 4.6 mmol/L Chloride Level 111 mmol/L Carbon Dioxide Level 29 mmol/L Anion Gap 3.0 mmol/L Blood Urea Nitrogen 32 mg/dl Creatinine 1.26 mg/dl Est Creatinine Clear Calc Drug Dose 46.0 ml/min Estimated GFR () 61.6 Estimated GFR (Non- 53.1 BUN/Creatinine Ratio 25.3 Random Glucose 88 mg/dl Calcium Level 8.3 mg/dl Total Bilirubin 0.7 mg/dl Aspartate Amino Transf (AST/SGOT) 30 U/L Alanine Aminotransferase (ALT/SGPT) 21 U/L Alkaline Phosphatase 76 U/L Total Protein 6.1 gm/dl Albumin 3.2 gm/dl Globulin 2.9 gm/dl Albumin/Globulin Ratio 1.1 Triglycerides Level 68 mg/dl Cholesterol Level 142 mg/dl HDL Cholesterol 54 mg/dl LDL Cholesterol, Calculated 74 mg/dl VLDL Cholesterol, Calculated 14 mg/dl Cholesterol/HDL Ratio 2.6
[2017-09-12 11:49] VITALS: BP 119/71; PULSE 53; TEMP 36.7; O2SAT 97
[2017-09-12] MEDS ORDERED: ASPI-320 PO (12:12)
--- NOTE | 2017-09-12 12:20 | Progress Note ---
Internal Med Progress Note Date of Service: Sep 12, 2017. Provider Documentation: SUBJECTIVE: Patient s/p stress test. Denies chest pain or shortness of breath OBJECTIVE: General Appearance: no apparent distress Head: normocephalic, atraumatic Eyes: normal inspection, EOMI, sclerae normal ENT: normal ENT inspection, hearing grossly normal, pharynx normal Neck: no JVD, trachea midline Respiratory/Chest: chest non-tender, lungs clear, normal breath sounds, no respiratory distress, no accessory muscle use Cardiovascular: regular rate, rhythm, no edema Abdomen/GI: normal bowel sounds, non tender, soft Extremities/Musculoskelatal: normal inspection, normal range of motion Neurologic/Psych: no motor/sensory deficits, alert, normal reflexes, oriented x 3 ASSESSMENT & PLAN: 82-year-old male with recent running in cold weather, then had syncopal episode , perhaps vasovagal in etiology as he had significant painful leg cramping took place just before the episode, sinus bradycardia, wild mild troponin elevation SYNCOPE workup -possible Vasovagal -Head CT negative -D-dimer elevated but CTA negative for pulmonary embolism -Echocardiogram 09/11/2017 Sinus bradycardia at 50 bpm was present during the echocardiogram. The left ventricle is normal in size. There is moderate concentric left ventricular hypertrophy. The left ventricular wall motion is normal. The LV Ejection Fraction = 60-65%. The right ventricle is normal in size and function. The right atrium is mildly dilated. Mild aortic regurgitation. There is mild tricuspid regurgitation. Doppler findings do not suggest pulmonary hypertension. There is mild mitral regurgitation. Patient underwent stress test and reviewed by Dr. Willis Elevated Creatinine Kinase - from over exercise, advise oral hydration, and avoid statin medications at this time Discharge Diagnosis 1. Syncopal episode, perhaps vasovagal in etiology 2. Sinus bradycardia, without significant AV block noted on telemetry 3. Elevated CPK likely due to skeletal muscle breakdown 4. very mild troponin elevation 5. Moderate concentric left ventricular hypertrophy, normal resting wall motion , LVEF 60-65%, with mild aortic regurgitation, mild tricuspid regurgitation, mild mitral regurgitation, no pulmonary hypertension based on Doppler findings on echocardiogram Discharge with prescription with aspirin 81 mg daily provider to the patient Follow up appointments 09/18/2017 11:00 AM Lizzy Barger DO [facility] 09/20/2017 10:30 AM Georges Willis DO Cardiology, [facility] 10/03/2017 10:20 AM James Hernandez MD [facility] Vital Signs: Date Time Temp Pulse Resp B/P (MAP) Pulse Ox O2 Delivery O2 Flow Rate FiO2 09/12/17 11:49 36.7 53 18 119/71 (87) 97 Room Air 09/12/17 08:00 Room Air 09/12/17 07:21 36.6 43 18 115/63 (80) 95 Room Air 09/12/17 04:00 36.7 51 20 125/70 (88) 97 Room Air 09/12/17 04:00 92 Room Air 09/12/17 00:20 92 Room Air 09/12/17 00:00 36.7 48 20 108/63 (78) 92 Room Air 09/11/17 20:08 96 Room Air 09/11/17 19:45 36.5 52 18 109/66 (80) 96 Room Air 09/11/17 16:00 Room Air 09/11/17 15:41 36.3 48 18 112/72 (85) 97 Room Air Lab Results: Results Past 24 Hours Test 09/11/17 14:23 09/12/17 07:06 Range/Units Total Creatine Kinase 508 351 39-308 U/L Creatine Kinase MB 5.0 2.9 0.5-3.6 ng/ml Creatine Kinase MB Ratio 1.0 0.8 0-3.0 Troponin I 0.031 < 0.015 0-0.045 ng/ml White Blood Count 5.86 4.8-10.8 K/uL Red Blood Count 3.85 4.7-6.1 M/uL Hemoglobin 12.6 14.0-18.0 g/dL Hematocrit 38.2 42-52 % Mean Corpuscular Volume 99.2 80-100 fL Mean Corpuscular Hemoglobin 32.7 25-34 pg Mean Corpuscular Hemoglobin Concent 33.0 32-36 g/dl Platelet Count 133 130-400 K/uL Mean Platelet Volume 10.3 7.4-10.4 fL Neutrophils (%) (Auto) 60.4 % Lymphocytes (%) (Auto) 25.3 % Monocytes (%) (Auto) 9.2 % Eosinophils (%) (Auto) 4.4 % Basophils (%) (Auto) 0.5 % Neutrophils # (Auto) 3.54 1.4-6.5 K/uL Lymphocytes # (Auto) 1.48 1.2-3.4 K/uL Monocytes # (Auto) 0.54 0.11-0.59 K/uL Eosinophils # (Auto) 0.26 0-0.5 K/uL Basophils # (Auto) 0.03 0-0.2 K/uL RDW Standard Deviation 45.4 36.4-46.3 fL RDW Coefficient of Variation 12.5 11.5-14.5 % Immature Granulocyte % (Auto) 0.2 % Immature Granulocyte # (Auto) 0.01 0.00-0.02 K/uL Sodium Level 143 136-145 mmol/L Potassium Level 4.6 3.5-5.1 mmol/L Chloride Level 111 98-107 mmol/L Carbon Dioxide Level 29 21-32 mmol/L Anion Gap 3.0 3-11 mmol/L Blood Urea Nitrogen 32 7-18 mg/dl Creatinine 1.26 0.60-1.40 mg/dl Est Creatinine Clear Calc Drug Dose 46.0 ml/min Estimated GFR () 61.6 Estimated GFR (Non- 53.1 BUN/Creatinine Ratio 25.3 10-20 Random Glucose 88 70-99 mg/dl Calcium Level 8.3 8.5-10.1 mg/dl Total Bilirubin 0.7 0.2-1 mg/dl Aspartate Amino Transf (AST/SGOT) 30 15-37 U/L Alanine Aminotransferase (ALT/SGPT) 21 12-78 U/L Alkaline Phosphatase 76 45-117 U/L Total Protein 6.1 6.4-8.2 gm/dl Albumin 3.2 3.4-5.0 gm/dl Globulin 2.9 2.5-4.0 gm/dl Albumin/Globulin Ratio 1.1 0.9-2 Triglycerides Level 68 0-150 mg/dl Cholesterol Level 142 0-200 mg/dl HDL Cholesterol 54 mg/dl LDL Cholesterol, Calculated 74 mg/dl VLDL Cholesterol, Calculated 14 mg/dl Cholesterol/HDL Ratio 2.6
--- NOTE | 2017-09-12 12:28 | Discharge Instructions ---
Discharge Instructions Date of Service Sep 12, 2017. Admission Reason for Admission: Syncope Discharge Discharge Diagnosis / Problem: vasovagal syncope, sinus bradycardia, elevated creatinine kinase Discharge Goals Goal(s): Improve function Activity Recommendations Activity Limitations: per Instructions/Follow-up section Lifting Limitations: gradually increase as tolerated Exercise/Sports Limitations: rest today Shower/Bathe: no limitations . Instructions / Follow-Up Instructions / Follow-Up 82-year-old male with recent running in cold weather, then had syncopal episode , perhaps vasovagal in etiology as he had significant painful leg cramping took place just before the episode, sinus bradycardia, wild mild troponin elevation SYNCOPE workup -possible Vasovagal -Head CT negative -D-dimer elevated but CTA negative for pulmonary embolism -Echocardiogram 09/11/2017 Sinus bradycardia at 50 bpm was present during the echocardiogram. The left ventricle is normal in size. There is moderate concentric left ventricular hypertrophy. The left ventricular wall motion is normal. The LV Ejection Fraction = 60-65%. The right ventricle is normal in size and function. The right atrium is mildly dilated. Mild aortic regurgitation. There is mild tricuspid regurgitation. Doppler findings do not suggest pulmonary hypertension. There is mild mitral regurgitation. Patient underwent stress test and reviewed by Dr. Willis Elevated Creatinine Kinase - from over exercise, advise oral hydration, and avoid statin medications at this time Discharge Diagnosis 1. Syncopal episode, perhaps vasovagal in etiology 2. Sinus bradycardia, without significant AV block noted on telemetry 3. Elevated CPK likely due to skeletal muscle breakdown 4. very mild troponin elevation 5. Moderate concentric left ventricular hypertrophy, normal resting wall motion , LVEF 60-65%, with mild aortic regurgitation, mild tricuspid regurgitation, mild mitral regurgitation, no pulmonary hypertension based on Doppler findings on echocardiogram Discharge with prescription with aspirin 81 mg daily provider to the patient Follow up appointments 09/18/2017 11:00 AM Lizzy Barger DO [facility] 09/20/2017 10:30 AM Georges Willis DO Cardiology, [facility] 10/03/2017 10:20 AM James Hernandez MD [facility] Current Hospital Diet Patient's current hospital diet: Regular Diet Discharge Diet Recommended Diet: Regular Diet Pending Studies Studies pending at discharge: no Laboratory Results Lipid Panel Test 09/12/17 07:06 Range/Units Triglycerides Level 68 0-150 mg/dl Cholesterol Level 142 0-200 mg/dl HDL Cholesterol 54 mg/dl Cholesterol/HDL Ratio 2.6 LDL Cholesterol, Calculated 74 mg/dl Medical Emergencies . Who to Call and When: Medical Emergencies: If at any time you feel your situation is an emergency, please call 911 immediately. . Non-Emergent Contact Non-Emergency issues call your: Primary Care Provider, [facility] Call Non-Emergent contact if: you have any medication questions . . "Provider Documentation" section prepared by Camilo Saavedra. . VTE Core Measure Inpt VTE Proph given/why not?: SCD's
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
[2017-09-12 12:48] VITALS: BP 119/71; PULSE 53; TEMP 36.7; O2SAT 97
--- NOTE | 2017-09-12 14:55 | EXERCISE STRESS ECHO ---
*NOTICE TO RECEIVING REPUBLICAN AGENCY This information is strictly Confidential and protected under [place] law. [place] law prohibits you from making any further disclosure of this information unless further disclosure is expressly permitted by the written consent of the person to whom it pertains or is authorized by law. A general authorization for the release of medical or other information is not sufficient for this purpose. Hospital accepts no responsibility if the information is made available to any other person, INCLUDING THE PATIENT. Interpretation Summary * Name: HUMERA HERNADEZ Study Date: 09/12/2017 08:22 AM BP: 113/54 mmHg * Patient Location: [facility]\S\N281\S\2 HR: 44 * : 1935 (M/d/yyyy) Gender: Male Height: 69 in * Age: 82 yrs Ethnicity: [place] Weight: 164 lb * Ordering Physician: Georges Willis * Referring Physician: No Doctor, Assigned * Performed By: Lula Salvador RCS * * Reason For Study: SYNCOPE * BSA: 1.9 m2 * -- Conclusions -- * STRESS STUDY: * Normal exercise stress echocardiogram. * No echocardiographic or ECG evidence of myocardial ischemia having achieved heart rate adequate for diagnostic purposes. * The exercise capacity was below expected. * The exercise test was terminated due to fatigue, shortness of breath, and inability to maintain pace on the treadmill. Procedure Details * ECHOEX, CPT #95889 Left Ventricle * The left ventricle is normal in size. There is moderate concentric left ventricular hypertrophy. Left ventricular systolic function is normal at rest. The resting LV Ejection Fraction = 60-65%. * Resting wall motion: Normal. Stress wall motion: Appropriate increase in Left ventricular systolic function and decrease in cavity size. No stress induced segmental wall motion abnormalities. Stress Parameters * The baseline EKG revealed sinus bradycardia at 44 bpm, with LVH by voltage criteria and normal ST segments. * The stress ECG response was normal * No arrhythmia were noted with stress. * The stress portion of this study was personally supervised by the undersigned interpreting physician. * Rest heart rate was '44' BPM. * Rest blood pressure was '113/54' * Maximum heart rate achieved was 134 bpm. * Maximum heart rate was 96 % of maximum age-predicted heart rate. * Maximum blood pressure was '178/70' * Total exercise time was '03:00' * Maximum exercise MET level achieved was '3.90' METS * Maximum treadmill speed was '1.70' miles per hour. * Maximum treadmill elevation was '10.00'% grade.
== END 2017-09-12 13:45 | disposition home or self-care (01) ==
LOC: EDBD 01:25 → C.EDB 01:28 → C.MED 07:04 → ENRESERV 07:31
PROVIDERS: ADMIT Internal Medicine; ATTEND Internal Medicine
DX: R55 Syncope and collapse (principal); R00.1 Bradycardia, unspecified; I51.7 Cardiomegaly; N40.0 Benign prostatic hyperplasia without lower urinary tract symptoms; Z90.89 Acquired absence of other organs; I35.1 Nonrheumatic aortic (valve) insufficiency; I34.0 Nonrheumatic mitral (valve) insufficiency; I07.1 Rheumatic tricuspid insufficiency; M79.605 Pain in left leg

== ENCOUNTER 2020-06-06 12:55 | Observation (INO) ==
[2020-06-06] MEDS ORDERED: LIDOCAINE/EPINEPH/TETRACAINE 1 EA SYR EXT STA (13:09)
[2020-06-06 13:24] LABS: Basophils # (auto) 0.03 K/uL (0-0.2); Basophils % (auto) 0.6 %; Eosinophils # (auto) 0.09 K/uL (0-0.5); Eosinophils % (auto) 1.9 %; Hematocrit (blood only) 45.5 % (42-52); Hemoglobin 15.4 g/dL (14.0-18.0); Lymphocytes # (auto) 0.78 K/uL (1.2-3.4); Lymphocytes % (auto) 16.7 %; Mean Corpuscular Hemoglobin 33.6 pg (25-34); Mean Corpuscular Hgb Conc 33.8 g/dL (32-36); Mean Corpuscular Volume 99.1 fL (80-100); Mean Platelet Volume 10.2 fL (7.4-10.4); Monocytes # (auto) 0.35 K/uL (0.11-0.59); Monocytes % (auto) 7.5 %; Neutrophils # (auto) 3.43 K/uL (1.4-6.5); Neutrophils % (auto) 73.3 %; Platelet Count 160 K/uL (130-400); RDW Coefficient of Variation 12.1 % (11.5-14.5); RDW Standard Deviation 44.1 fL (36.4-46.3); Red Blood Count 4.59 M/uL (4.7-6.1); White Blood Count 4.68 K/uL (4.8-10.8)
--- NOTE | 2020-06-06 13:32 | Emergency Department Note ---
Impression & Plan Concussion with loss of consciousness, Syncope, Laceration of lip, Laceration of face, Contusion of face, Abrasion of knee, right ED Provider Note INFORMANT: Patient ED PROVIDER(S): Jimmie Marie MD CHIEF COMPLAINT: Fall PLAN: Disposition: Admitted Condition: Good MEDICAL DECISION MAKING: Patient presented emergency department after a fall. He likely had a syncopal episode and suffered a significant concussion with injury to the right side of his face. His ECG and monitoring were normal. CT imaging of the head, facial bones, and cervical spine revealed no significant fractures or intracranial injury. The patient had his lacerations repaired by Zuri Franco PA-C. Please see her note. Because of the lack of clear prodrome I discussed further management and monitoring in the hospital. The patient and were in agreement. The [facility] service was consulted. I discussed the case with Jamir Gomez PA-C. The patient will be admitted for further management. Triage Nursing notes reviewed and agree them. Additional history obtained from EMS. Vital Signs: reviewed and remarkable for no significant abnormalities Differential diagnosis: Concussion, contusion, fracture, subdural hematoma, epidural hematoma, intra parenchymal hemorrhage, as well as other pathologies. Diagnostics interpreted by me: ECG: Rate: 72 Rhythm:Normal sinus [place]:Normal QRS:Normal ST segements:No elevation or depression Other:No PACs or PVCs Cardiac Monitoring: Cardiac monitoring ordered by me: The patient was placed on continuous cardiac monitoring and observed. It revealed a normal sinus rhythm at 75 beats per minute without ectopy or evidence of dysrhythmia. Imaging studies: CT imaging of the head, cervical spine and facial bones were performed. Consultation(s): None HPI: The patient is a 85 year old male who presents to the Emergency Room with complaints of a fall. This started just prior to arrival and occurred while jogging. The patient states he was finishing up a 10K run this morning which is a typical weekly event for him and he felt like he needed to get off the road, like something was not right, and that the last thing that he remembers. He was reportedly seen trying to get up and had an obvious injury to the right side of his face. EMS was summoned EMS noted he had contusion of the face and right knee. There were small lacerations noted of the right face, right upper lip. The patient had repetitive questioning. He was placed in a cervical collar. The patient also notes the following associated symptoms, feeling tired. The patient has been given no medication for relieving factors. Current pain is rated as a mild discomfort, 2/10. Patient states he has been in good health recently. He has no significant medical issues and only takes vitamins. Pt denies visual changes, neck pain, chest pain, breathing difficulties, nausea, vomiting, abdominal pain, back pain, extremity pain, numbness, weakness, or other complaints. ROS: See above HPI for pertinent positives & negatives. A total of 10 systems reviewed and were otherwise negative. PAST MEDICAL HISTORY:See Below, BPH PAST SURGICAL HISTORY:See Below, tonsils FAMILY HISTORY:See Below SOCIAL HISTORY:See Below, HOME MEDICATIONS:See Below ALLERGIES:See Below VITALS:See Below PHYSICAL EXAMINATION: GENERAL: Awake, alert, [id number]-ebryaocag, in no distress HENT: Normocephalic, obvious contusion and right periorbital ecchymosis mostly below the eye though. There is a small laceration lateral to the right eye. Small laceration to the outside of the right upper lip. Moderate laceration noted to the inner right upper lip. Dentition appears to be within normal limits. EYES: Normal conjunctiva. Sclera non-icteric. The right cornea is clear. PERRLA. EOMI. NECK: Inspection normal. Non-tender. Cervical collar in place. No masses. RESPIRATORY: Clear to auscultation. No wheezes. No rales. Normal respiratory effort. CARDIAC: Normal rate. Normal rhythm. No murmurs. No rubs. Extremities warm and well perfused. Pulses equal. No JVD. GI: Soft, non-distended. No tenderness to palpation. No rebound or guarding. No masses. RECTAL: Deferred. MUSCULOSKELETAL: Atraumatic except for an abrasion noted superior to the right knee. Without deformity or tenderness. Chest examination reveals no tenderness. The back is symmetrical on inspection without obvious abnormality. There is no CVA tenderness to palpation. No joint edema. LOWER EXTREMITIES: Calves are equal size bilaterally and non-tender. No edema. No discoloration. NEURO: Mild confusion surrounding the events otherwise normal sensorium. No sensory or motor deficits noted. SKIN: No rash or jaundice noted. Jimmie Marie MD Past Med/Surg History Medical History (Updated 06/06/20 @ 13:32 by Jimmie Marie MD) Depression No pertinent past medical history Family History Other Family history non-contributory Social History Smoking Status: Former smoker Preferred Language: Vincentian marital status: Current Living Situation: Spouse current occupational status: retired Feels Safe at Home: Yes Allergies Allergies Allergy/AdvReac Type Severity Reaction Status Date / Time No Known Allergies Allergy Verified 09/30/18 16:06 Home Meds Home Medications Medication Instructions Recorded Confirmed loratadine [Claritin] 10 mg PO QAM PRN 09/30/18 06/06/20 multivitamin 1 tab PO QAM 09/30/18 06/06/20 acetaminophen [Tylenol] 325 mg PO QID PRN 06/06/20 06/06/20 calcium citrate 250 mg PO QID 06/06/20 06/06/20 fluticasone propionate [Flonase] 2 spray INTRANASAL DAILY PRN 06/06/20 06/06/20 magnesium 400 mg PO .QDL,HS 06/06/20 06/06/20 menthol [Pain Relief (menthol)] 1 applic TOPICAL TID PRN 06/06/20 06/06/20 Results & Data (ED) Vital Signs Vital Signs - 24 hr 06/06/20 13:05 06/06/20 13:24 06/06/20 15:02 Temperature 36.9 C Temperature Source Oral Pulse Rate 71 Pulse Rate [Finger] 59 L Respiratory Rate 20 20 Blood Pressure 116/77 Blood Pressure [Right Arm] 122/72 Blood Pressure Mean 90 Blood Pressure Mean [Right Arm] 88 Pulse Oximetry 95 95 98 Oxygen Delivery Method Room Air Room Air Room Air Sepsis Recent Fever Within 48 Hours No Sepsis New/Unexplained Change in Mental Status No Sepsis Action Taken by Nursing No Action Required Laboratory Data Result diagrams: 06/06/20 13:15 06/06/20 13:15 Lab Results 06/06/20 06/06/20 Range/Units 13:15 13:15 WBC 4.68 L (4.8-10.8) K/uL RBC 4.59 L (4.7-6.1) M/uL Hgb 15.4 (14.0-18.0) g/dL Hct 45.5 (42-52) % MCV 99.1 (80-100) fL MCH 33.6 (25-34) pg MCHC 33.8 (32-36) g/dL RDW Std Deviation 44.1 (36.4-46.3) fL RDW Coeff of Al 12.1 (11.5-14.5) % Plt Count 160 (130-400) K/uL MPV 10.2 (7.4-10.4) fL Immature Gran % (Auto) 0.0 % Neut % (Auto) 73.3 % Lymph % (Auto) 16.7 % Borden % (Auto) 7.5 % Eos % (Auto) 1.9 % Baso % (Auto) 0.6 % Neut # (Auto) 3.43 (1.4-6.5) K/uL Lymph # (Auto) 0.78 L (1.2-3.4) K/uL Borden # (Auto) 0.35 (0.11-0.59) K/uL Eos # (Auto) 0.09 (0-0.5) K/uL Baso # (Auto) 0.03 (0-0.2) K/uL Immature Gran # (Auto) 0.00 (0.00-0.02) K/uL Sodium 144 (136-145) mmol/L Potassium 4.5 (3.5-5.1) mmol/L Chloride 111 H (98-107) mmol/L Carbon Dioxide 24 (21-32) mmol/L Anion Gap 9.0 (3-11) BUN 30 H (7-18) mg/dl Creatinine 1.53 H (0.6-1.4) mg/dl Est Cr Clr Drug Dosing 35.9 ml/min Est GFR ( Amer) 47.7 Est GFR (Non-Af Amer) 41.1 BUN/Creatinine Ratio 19.7 (10-20) Glucose 102 H (70-99) mg/dl Calcium 9.6 (8.5-10.1) mg/dl Total Bilirubin 1.3 H (0.2-1) mg/dl AST 29 (15-37) U/L ALT 28 (12-78) U/L Alkaline Phosphatase 98 (45-117) U/L Troponin I < 0.015 (0-0.045) ng/ml Total Protein 7.3 (6.4-8.2) gm/dl Albumin 3.8 (3.4-5.0) gm/dl Globulin 3.5 (2.5-4.0) gm/dl Albumin/Globulin Ratio 1.1 (0.9-2) Administered Medications Discontinued Medications Lidocaine (Lidocaine/Epineph/Tetracaine 1 Ea Syr) 1 ea EXT NOW STA Stop: 06/06/20 13:10 Last Admin: 06/06/20 13:13 Dose: 1 ea Documented by: [id number] Lidocaine HCl (Xylocaine 1%/Sod Bicarb 20 Ml Vial) 20 ml INFIL NOW ONE Stop: 06/06/20 14:01 Last Admin: 06/06/20 14:04 Dose: 20 ml Documented by: [id number] Discharge Plan Visit Data Chief Complaint: Fall Stated Complaint: fall/ head & facial lacs/contusions ED Provider: Jimmie Marie Discharge Problem: Concussion with loss of consciousness, Syncope, Laceration of lip, Laceration of face, Contusion of face, Abrasion of knee, right Forms Stand Alone Forms: [facility] Prescriptions Prescriptions: No Action acetaminophen [Tylenol] 325 mg Tablet 325 mg PO QID PRN (Reason: Pain) RF: 0 fluticasone propionate [Flonase] 50 mcg/actuation [place],Suspension 2 spray INTRANASAL DAILY PRN (Reason: Allergy Symptoms) RF: 0 magnesium 200 mg Tablet 400 mg PO .QDL,HS RF: 0 menthol [Pain Relief (menthol)] Gel 1 applic TOPICAL TID PRN (Reason: Pain) RF: 0 calcium citrate 250 mg calcium Tablet 250 mg PO QID RF: 0 multivitamin Tablet 1 tab PO QAM RF: 0 loratadine [Claritin] 10 mg Tablet 10 mg PO QAM PRN (Reason: Congestion) RF: 0
[2020-06-06 13:40] LABS: Alanine Aminotransferase 28 U/L (12-78); Albumin Level 3.8 gm/dl (3.4-5.0); Aspartate Aminotransferase 29 U/L (15-37); BUN Creatinine Ratio 19.7 (10-20); Blood Urea Nitrogen 30 mg/dl (7-18); Calcium 9.6 mg/dl (8.5-10.1); Carbon Dioxide 24 mmol/L (21-32); Chloride 111 mmol/L (98-107); Creatinine Clr Calc Pharmacy 35.9 ml/min; Est GFR (African American) 47.7; Est GFR (Non-African American) 41.1; Glucose 102 mg/dl (70-99); Potassium 4.5 mmol/L (3.5-5.1); Sodium 144 mmol/L (136-145)
--- NOTE | 2020-06-06 13:42 | CT Scan Report ---
CT head/brain wo con CLINICAL HISTORY: 85 years-old Male with fall, [facility]. Acute head injury status post fall TECHNIQUE: Multiple axial CT images of the head were obtained without contrast. A dose lowering tech nique was utilized adhering to the principles of ALARA. COMPARISON: CT maxillofacial and cervical spine studies of same day, head CT 01/26/2019. FINDINGS: No acute intracranial hemorrhage, midline shift, intracranial mass, hydrocephalus, territorial ischem ia or abnormal extra-axial collection. Mild age-related involutional changes. Patchy white matter hyp odensities suggest chronic microvascular ischemic disease. Cerebral vascular calcifications. The calvarium is intact. Right periorbital/intraorbital and cheek hematoma measures up to 8.8 x 1.0 c m. No opaque foreign body. Prior bilateral lens are present. The bilateral globes and orbits are unre markable. The paranasal sinuses, mastoid air cells, and middle ear cavities are clear. IMPRESSION: 1. No acute intracranial abnormality or calvarial fracture. 2. Moderate sized right infraorbital hematoma. ACT 112: Negative or not required by law. The above report was generated using voice recognition software. It may contain grammatical, syntax o r spelling errors. Electronically signed by: Bradley Agrawal M.D. 06/06/2020 1:40 PM
[2020-06-06 13:45] LABS: Albumin Globulin Ratio 1.1 (0.9-2); Alkaline Phosphatase 98 U/L (45-117); Bilirubin,Total 1.3 mg/dl (0.2-1); Globulin 3.5 gm/dl (2.5-4.0); Total Protein 7.3 gm/dl (6.4-8.2); Troponin I < 0.015 ng/ml (0-0.045)
--- NOTE | 2020-06-06 13:48 | CT Scan Report ---
CT facial bones wo con CLINICAL HISTORY: 85 years-old Male presenting with fall, [facility]I. Acute head and face trauma status post fall COMPARISON STUDY: CT head and cervical spine studies of same day, CT maxillofacial 01/26/2019 TECHNIQUE: High-resolution CT scan of the facial bones is performed. Images are reviewed in the axia l, sagittal, and coronal planes. IV contrast was not administered for this examination. A dose lower ing technique was utilized adhering to the principles of ALARA. CT DOSE: 1877.22 mGy.cm FINDINGS: There is a moderate right infraorbital/right cheek hematoma measuring up to approximately 10 x 1 cm. No opaque foreign body. Prior bilateral lens replacement. The bilateral globes and orbits are unremar kable. Streak artifact from dental amalgam hardware. Calcified plaque of the carotid bulbs. The image d cervical spine appears intact. Mastoid air cells and middle ear cavities are clear. Paranasal sinus es are also clear. The zygomatic arches, maxillary grady, pterygoid plates and nasal bones appear int act. Degeneration of the right greater than left temporal mandibular joints. The mandible is intact. No acute mandibular fracture. IMPRESSION: Moderate right infraorbital/right cheek hematoma. No acute facial bone fracture. ACT 112: Negative or not required by law. The above report was generated using voice recognition software. It may contain grammatical, syntax o r spelling errors. Electronically signed by: Bradley Agrawal M.D. 06/06/2020 1:47 PM
--- NOTE | 2020-06-06 13:54 | CT Scan Report ---
CT cervical spine wo con CLINICAL HISTORY: 85 years-old Male with fall, [facility]. Acute head and neck injury status post fall COMPARISON: CT cervical spine 01/26/2019 TECHNIQUE: Multiple axial CT images of the cervical spine were obtained without contrast. A dose low ering technique was utilized adhering to the principles of ALARA. FINDINGS: Moderate to severe disc space narrowing at C5-C6 and C6-C7 redemonstrated. Moderate multilevel facet arthrosis. Severe right-sided facet arthrosis at C3-C4. 3 mm anterolisthesis C3 on C4 is likely secon silver to long-standing facet arthrosis. No acute fracture or subluxation. Multilevel spondylitic spurr ing, moderate anteriorly at C5-C6. Lung apices are clear. No prevertebral soft tissue swelling. IMPRESSION: No acute fracture or subluxation. ACT 112: Negative or not required by law. The above report was generated using voice recognition software. It may contain grammatical, syntax o r spelling errors. Electronically signed by: Bradley Agrawal M.D. 06/06/2020 1:53 PM
[2020-06-06] MEDS ORDERED: XYLOCAINE 1%/SOD BICARB 20 ML VIAL INFIL ONE (14:00)
--- NOTE | 2020-06-06 14:39 | Emergency Department Note ---
ED Visit Note EMERGENCY DEPARTMENT PROCEDURE NOTE: I was asked by Dr. Marie to repair the facial wounds of this 85-year-old male patient. Please refer to their dictation for the complete history, physical exam, and ED course. EMERGENCY DEPARTMENT COURSE: LET gel had been applied to the patient's lacerations prior to my assessment of the patient. He had a 1 cm laceration over the right christian, lateral to the right eye. He has a 0.5 cm laceration of the right upper lip revealing and border, lateral to the philtrum. He has a T- shaped 3 cm laceration on the inner aspect of the right upper lip. Attention was turned to the right christian laceration first. Wound was cleansed with saline and Betadine and anesthetized with additional 1% plain buffered lidocaine. Wound was irrigated with normal saline solution and reapproximated using 3, 6-0 nylon sutures. Laceration of the right upper lip was cleansed and irrigated in a similar fashion, and closed with 1, 6-0 nylon sutures. Laceration on the inner aspect of the right upper lip was anesthetized with additional 1% plain buffered lidocaine and irrigated with normal saline solution. Laceration here was reapproximated using five 5-0 absorbable PDS sutures.
--- NOTE | 2020-06-06 16:00 | History & Physical Report ---
Date of Service June 06, 2020 Assessment & Plan (1) Syncope: Patient with history of 4 falls in the past with the least one syncopal event Patient has had 2 treadmill stress echocardiograms in the past both of which were negative for induced ischemia Electrolytes seem to be balance CT of the head is negative We will check an echocardiogram with bubble study to be interpreted by [facility] cardiology team We will also check repeat EKG in the morning and with chest pain Admit to the telemetry unit with monitoring off of the unit We will start the patient on aspirin 81 mg daily until cardiac work-up is compl eted We will also hydrate for acute kidney injury with slight bump in creatinine Check orthostatic blood pressures in the morning (2) Chronic kidney disease: Patient appears to have acute kidney injury with a slight bump in creatinine 1.53 from his baseline of 1.3 We will hydrate the patient with normal saline at 80 mL/h Check repeat labs in the morning No flank pain on examination No increase in WBC No evidence of urinary tract infection but will check a UA with reflex culture (3) History of depression: Patient was on SSRIs until approximately 3 months when he was directed to stop per his primary care provider Patient has no evidence of depression or anxiety. This is corroborated by his who is present (4) BPH (benign prostatic hyperplasia): Patient is not on an alpha-traci He takes no prescription medications for BPH He denies any hematuria (5) DVT prophylaxis: We will start the patient on aspirin 81 mg until cardiac work-up is completed We will also treat the patient with heparin 5000 units subcutaneously every 12 hours No edema or asymmetrical edema of the lower extremities SCDs PASTOR la Please refer to Dr. Campbell's addendum for further recommendations and corrections. History of Present Illness Primary Care Provider: James Hernandez MD Attending: Dr. Campbell This is an 85-year-old male with no significant past medical history other than history of depression for which he stopped medication about 3 months ago at the direction of his primary care physician and chronic kidney disease s tage III with a baseline creatinine of 1.3. He is on antihistamines for seasonal allergies and a magnesium supplement. He is on no prescribed medications. The patient is a regular runner. He was running a 10K this morning and felt odd. He began to have for the grass in case he fell. Unfortunately he had a syncopal event prior to reaching the grass. He has no defensive wounds on his hands or arms or elbows but does have a large area of ecchymosis and hematoma at the right eye extending to the lower earlobe on the right side. He has some small lacerations which were repaired with sutures. He has no knee pain or leg pain. He denies any chest pain or tightness. He has no shortness of breath. He had no other prodrome prior to his fall. He denies any ectopy or palpitations at the time or following the fall. He did have loss of consciousness and does not remember the timeframe from falling until awakening in the ambulance. This is a patient's fourth fall event while running. The first event was September 2017 when he was running first night and was 0 F during his run. He reports coming home and taking a hot shower and then passing out at the bed. He had a stress echocardiogram at the time which showed no induced ischemia and preserved left ventricular ejection fraction. The patient then had 2 events where he was struck by dogs while running causing tripping and falls. He denies any syncope or neurological events for those 2 events. The patient denies any other fall events around the home. He has no ambulatory dysfunction. He denies any other syncope or presyncope, lightheadedness, dizziness, chest pain at rest, chest pain with exertion, shortness of breath, dyspnea with exertion, blurred vision, heat flashes, chills, dysuria. He has no known active bleeding. He still has a spleen. 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 He has no other chronic disease. Allergies Allergy/AdvReac Type Severity Reaction Status Date / Time No Known Allergies Allergy Verified 09/30/18 16:06 Home Medications Home Medications Medication Instructions Recorded Confirmed Type loratadine [Claritin] 10 mg PO QAM PRN 09/30/18 06/06/20 History multivitamin 1 tab PO QAM 09/30/18 06/06/20 History acetaminophen [Tylenol] 325 mg PO QID PRN 06/06/20 06/06/20 History calcium citrate 250 mg PO QID 06/06/20 06/06/20 History fluticasone propionate [Flonase] 2 spray INTRANASAL DAILY PRN 06/06/20 06/06/20 History magnesium 400 mg PO .QDL,HS 06/06/20 06/06/20 History menthol [Pain Relief (menthol)] 1 applic TOPICAL TID PRN 06/06/20 06/06/20 History Past Med/Surg History Medical History Chronic kidney disease Stage III with baseline creatinine of 1.3 Depression History of depression Stopped antidepressants in February 2020 at the direction of his PCP Surgical History (Updated 06/06/20 @ 15:47 by Jamir Gomez PA-C) H/O cataract removal with insertion of prosthetic lens Family History Other Family history non-contributory Social History Smoking Status: Former smoker Hx Alcohol Use: No Hx Substance Use: No Preferred Language: Tristanian Communication Ability: Effective Resolution Specialist Required: No Beliefs That Will Affect Care: None marital status: Current Living Situation: Spouse current occupational status: retired Other Information That Helps Us Care for You: No Feels Safe at Home: Yes Safety Concerns: Feels Safe At This Time Assistive Devices: None Review of Systems Review of Systems: All systems reviewed & are unremarkable except as noted in HPI & below Physical Exam Physical Exam: GENERAL : No acute distress. Talkative with no demonstration of residual dyspnea EYES: No icterus, gaze conjugate. Pupils are equal round and reactive to light. There is a large area of ecchymosis with hematoma at the right eye. Tender to palpitation but no evidence of bone fragment. NOSE: Evidence of epistaxis but no current bleeding. MOUTH: No lesions or candidiasis. Tongue is midline. No facial droop. NECK: Supple. No appreciation of carotid bruits bilaterally. LUNGS: CTA B/L, no wheezes, rales or rhonchi. Good inspiratory effort HEART: Regular, rate controlled in the 60s. No appreciation of ectopy. ABDOMEN: Soft, NT, ND, BS Present EXTREMITIES: No LE edema, pedal pulses intact and equal bilaterally NEURO: A&OX3. Negative pronator drift. Pupils equal round react to light. Tongue is midline. No facial droop. No evidence of CVA or other focal neurological deficit. Cranial nerves II through XII appear grossly intact. Results & Data Results & Data ([facility]) Vital Signs (Past 12 Hours) Vital Signs Temp Pulse Pulse Resp BP BP Pulse Ox 06/06/20 15:02 59 L 20 122/72 98 06/06/20 13:24 95 06/06/20 13:05 36.9 C 71 20 116/77 95 Laboratory Results 06/06/20 13:15 06/06/20 13:15 06/06/20 13:15 Troponin I < 0.[address] head/brain wo con CLINICAL HISTORY: 85 years-old Male with fall, [facility]. Acute head injury status post fall TECHNIQUE: Multiple axial CT images of the head were obtained without contrast. A dose lowering technique was utilized adhering to the principles of ALARA. COMPARISON: CT maxillofacial and cervical spine studies of same day, head CT 01/26/2019. FINDINGS: No acute intracranial hemorrhage, midline shift, intracranial mass, hydrocephalus, territorial ischemia or abnormal extra-axial collection. Mild age-related involutional changes. Patchy white matter hypodensities suggest chronic microvascular ischemic disease. Cerebral vascular calcifications. The calvarium is intact. Right periorbital/intraorbital and cheek hematoma measures up to 8.8 x 1.0 cm. No opaque foreign body. Prior bilateral lens are present. The bilateral globes and orbits are unremarkable. The paranasal sinuses, mastoid air cells, and middle ear cavities are clear. IMPRESSION: 1. No acute intracranial abnormality or calvarial fracture. 2. Moderate sized right infraorbital hematoma. ACT 112: Negative or not required by law. The above report was generated using voice recognition software. It may contain grammatical, syntax or spelling errors. Electronically signed by: Bradley Agrawal M.D. 06/06/2020 1:[address] facial bones wo con CLINICAL HISTORY: 85 years-old Male presenting with fall, [facility]I. Acute head and face trauma status post fall COMPARISON STUDY: CT head and cervical spine studies of same day, CT maxillofacial 01/26/2019 TECHNIQUE: High-resolution CT scan of the facial bones is performed. Images are reviewed in the axial, sagittal, and coronal planes. IV contrast was not administered for this examination. A dose lowering technique was utilized adhering to the principles of ALARA. CT DOSE: 1877.22 mGy.cm FINDINGS: There is a moderate right infraorbital/right cheek hematoma measuring up to approximately 10 x 1 cm. No opaque foreign body. Prior bilateral lens replacement. The bilateral globes and orbits are unremarkable. Streak artifact from dental amalgam hardware. Calcified plaque of the carotid bulbs. The imaged cervical spine appears intact. Mastoid air cells and middle ear cavities are clear. Paranasal sinuses are also clear. The zygomatic arches, maxillary grady, pterygoid plates and nasal bones appear intact. Degeneration of the right greater than left temporal mandibular joints. The mandible is intact. No acute mandibular fracture. IMPRESSION: Moderate right infraorbital/right cheek hematoma. No acute facial bone fracture. ACT 112: Negative or not required by law. The above report was generated using voice recognition software. It may contain grammatical, syntax or spelling errors. Electronically signed by: Bradley Agrawal M.D. 06/06/2020 1:[address] cervical spine wo con CLINICAL HISTORY: 85 years-old Male with fall, [facility]. Acute head and neck injury status post fall COMPARISON: CT cervical spine 01/26/2019 TECHNIQUE: Multiple axial CT images of the cervical spine were obtained without contrast. A dose lowering technique was utilized adhering to the principles of ALARA. FINDINGS: Moderate to severe disc space narrowing at C5-C6 and C6-C7 redemonstrated. Moderate multilevel facet arthrosis. Severe right-sided facet arthrosis at C3- C4. 3 mm anterolisthesis C3 on C4 is likely secondary to long-standing facet arthrosis. No acute fracture or subluxation. Multilevel spondylitic spurring, moderate anteriorly at C5-C6. Lung apices are clear. No prevertebral soft tissue swelling. IMPRESSION: No acute fracture or subluxation. ACT 112: Negative or not required by law. The above report was generated using voice recognition software. It may contain grammatical, syntax or spelling errors. Electronically signed by: Bradley Agrawal M.D. 06/06/2020 1:53 PM Code Status & VTE Plan Code Status Level 1: Full resuscitation VTE Prophylaxis Plan VTE Prophylaxis will be ordered: Yes Supervising Physician Co-Signing Physician Notes Patient was seen and examined by me, care coordinated with Jamir Gomez PA-C. Please see his note above for further details. Mr. Davis is an 85-year-old male, who is an avid runner, his medical history significant for CKD stage III, vitamin D deficiency, OA of knee, RLS, BPH, chronic rhinitis, LVH, recently diagnosed with renal cyst, who now presents after a fall while running his 6K. Patient runs regularly, several times a week he was almost finished with his 6K earlier today, when he felt that his legs were faster than he would like. He reports that he was going towards grass and he remembers seeing a curb, however that is all that he remembers, until he was in the ambulance. He was brought in by EMS, denies any chest pain or shortness of breath, dizziness. He unfortunately hit his right face, scraped his right hand and forearm and left knee. He has history of falls, previously he was tripped by dog while running, and once he lost consciousness at home after running 5K. At that time cardiac work- up was done and it was believed that it was likely vasovagal episode. In ER ECG showed normal sinus rhythm with sinus arrhythmia, creatinine 1.5, baseline about 1.3, per records from April 2020. Troponin negative. CT head showed no acute intracranial abnormality or calvarial fracture. No facial fracture. Moderate sized right infraorbital hematoma. Neck CT showed no fractures or subluxation. On physical exam, patient is lying in bed in no acute distress. Patient's is present at the bedside. Patient is alert and oriented and answering questions appropriately. He has significant oozing hematoma under his right eye. He is able to move all his extremities spontaneously and without difficul ty. There is a lesion on his right forearm, small one on his right hand, and also left knee, Band-Aids applied. Heart sounds are regular, no murmur appreciated. Lungs are clear to auscultation b/l without any wheezing rhonchi or crackles. Abdomen is soft, nontender nondistended, positive bowel sounds. Skin is warm dry well-perfused. Will provide gentle hydration especially knowing that patient just ran 6K, and he has elevated creatinine from baseline. Will have him on front desk monitor for observation, will update echocardiogram and discuss with cardiology further. We will check his magnesium and phos levels, patient is on chronic magnesium supplement. [facility] vital signs. It is concerning that patient does not recall his fall, this is possibly d/t dehydration/exhaustion from his run/exertion but will observe and do further work-up to rule out any other underlying cause. Nydia Campbell MD
[2020-06-06 16:13] LABS: Appearance Urine Clear (Clear); Bacteria Urine Automated Negative (Negative); Bilirubin Urine Negative (Negative); Blood Urine Negative (Negative); Color Urine Dark Yellow; Glucose Urine UA Negative (Negative); Ketones Urine 1+ (Negative); Leukocyte Esterase Urine Negative (Negative); Nitrite Urine Negative (Negative); RBC Urine Automated 0-4 /hpf (0-4); Specific Gravity Urine 1.023 (1.000-1.030); Urobilinogen Urine Negative (Negative); pH Urine 8.5 (4.5-7.5)
[2020-06-06 16:34] LABS: Protein Urine Negative (Negative); Sulfosalicylic Acid Urine Negative (Negative)
[2020-06-06] MEDS ORDERED: POLYETHYLENE (MIRALAX) 17 GM PACK PO PRN (17:14)
[2020-06-06] MEDS ORDERED: ACETAMINOPHEN 325 MG TAB PO PRN (17:14)
[2020-06-06] MEDS ORDERED: ALUMINUM/MAGNESIUM SUSP 30 ML UDC PO PRN (17:14)
[2020-06-06] MEDS ORDERED: MAGNESIUM HYDROXIDE SUSP 30 ML UDC PO PRN (17:14)
[2020-06-06] MEDS ORDERED: ONDANSETRON INJ 2 MG/ML 2 ML VIAL IV PRN (17:14)
[2020-06-06] MEDS: SODIUM CHLORIDE 0.9% 1000ML 1,000 ML IV SCH (17:37)
[2020-06-06 17:41] LABS: Magnesium 2.2 mg/dl (1.8-2.4)
[2020-06-06] MEDS: ASPIRIN 81 MG ECTAB PO SCH (18:35)
[2020-06-06] MEDS: HEPARIN SOD 5,000 UNIT/0.5 ML VIAL SQ SCH (21:32)
[2020-06-06] MEDS: CALCIUM CITRATE 950 MG TAB PO SCH (21:32)
[2020-06-07 06:00] LABS: Basophils # (auto) 0.01 K/uL (0-0.2); Basophils % (auto) 0.1 %; Eosinophils # (auto) 0.09 K/uL (0-0.5); Eosinophils % (auto) 1.2 %; Hematocrit (blood only) 42.8 % (42-52); Hemoglobin 14.2 g/dL (14.0-18.0); Immature Granulocytes # (auto) 0.01 K/uL (0.00-0.02); Immature Granulocytes % (auto) 0.1 %; Lymphocytes # (auto) 1.36 K/uL (1.2-3.4); Lymphocytes % (auto) 18.4 %; Mean Corpuscular Hemoglobin 33.3 pg (25-34); Mean Corpuscular Hgb Conc 33.2 g/dL (32-36); Mean Corpuscular Volume 100.2 fL (80-100); Mean Platelet Volume 10.1 fL (7.4-10.4); Monocytes # (auto) 0.78 K/uL (0.11-0.59); Monocytes % (auto) 10.5 %; Neutrophils # (auto) 5.16 K/uL (1.4-6.5); Neutrophils % (auto) 69.7 %; Platelet Count 147 K/uL (130-400); RDW Coefficient of Variation 12.4 % (11.5-14.5); RDW Standard Deviation 45.4 fL (36.4-46.3); Red Blood Count 4.27 M/uL (4.7-6.1); White Blood Count 7.41 K/uL (4.8-10.8)
[2020-06-07 06:25] LABS: BUN Creatinine Ratio 20.6 (10-20); Calcium 8.8 mg/dl (8.5-10.1); Est GFR (Non-African American) 48.3; Potassium 4.4 mmol/L (3.5-5.1)
[2020-06-07] MEDS: SODIUM CHLORIDE 0.9% 1000ML 1,000 ML IV SCH ×2 (06:40→06:41)
[2020-06-07] MEDS: CALCIUM CITRATE 950 MG TAB PO SCH ×4 (08:21→20:35)
[2020-06-07] MEDS: ASPIRIN 81 MG ECTAB PO SCH (08:21)
[2020-06-07] MEDS: MULTIVITAMIN TAB PO SCH (08:22)
[2020-06-07] MEDS: HEPARIN SOD 5,000 UNIT/0.5 ML VIAL SQ SCH ×2 (08:35→20:35)
--- NOTE | 2020-06-07 08:44 | Electrocardiogram Report ---
Test Reason : Blood Pressure : / mmHG Vent. Rate : 072 BPM Atrial Rate : 072 BPM P-R Int : 142 ms QRS Dur : 090 ms QT Int : 390 ms P-R-T Axes : 040 040 -06 degrees QTc Int : 427 ms Normal sinus rhythm with sinus arrhythmia Normal ECG When compared with ECG of 30-SEP-2018 16:19, No significant change was found Confirmed by Arley Linton ([id number]) on 06/07/2020 8:43:43 AM Referred By: REFERRED SELF Confirmed By:Arley Linton
--- NOTE | 2020-06-07 08:47 | Electrocardiogram Report ---
Test Reason : Blood Pressure : / mmHG Vent. Rate : 052 BPM Atrial Rate : 052 BPM P-R Int : 144 ms QRS Dur : 084 ms QT Int : 438 ms P-R-T Axes : 063 043 -04 degrees QTc Int : 407 ms Sinus bradycardia Nonspecific T wave abnormality Inferior leads Abnormal ECG When compared with ECG of 06-JUN-2020 12:59, (unconfirmed) No significant change was found Confirmed by Arley Linton ([id number]) on 06/07/2020 8:46:44 AM Referred By: REFERRED SELF Confirmed By:Arley Linton
[2020-06-07] MEDS: MAGNESIUM OXIDE 400 MG TAB PO SCH ×2 (12:41→16:55)
--- NOTE | 2020-06-07 14:21 | Hospitalist Progress Note ---
Date of Service June 07, 2020 Assessment & Plan (1) Syncope: Syncope Facial Trauma /Right infra orbital hematoma H/O falls in the past with the least one syncopal event CT head:. No acute intracranial abnormality or calvarial fracture. Moderate sized right infraorbital hematoma. Face CT:Moderate right infraorbital/right cheek hematoma. No acute facial bone fracture. Neck CT:No acute fracture or subluxation. Normal [facility] ECHO Pending Monitor on Tele Planned for Stress test today Likely will need Cardiac Catheterization Appreciate Cardiology Input Fall precautions Continue IV fluids for dehydration LILIAN on CKD III Likely prerenal Continue gentle IV fluids Monitor renal function Avoid nephrotoxic agents as able H/O Depression: Previously on SSRIs 3 months--DCed by PCP Mood Stable BPH: Not on Meds Bladder Scan PRN DVT Px: Heparin SQ Code Status Full Code Disposition Expect to discharge home when medically stable Admission and Anticipated Discharge Date Admission Date: June 06, 2020 Subjective Patient is seen and examined at bedside Plan to have cardiac stress test today and possible cardiac cath tomorrow Bradycardia on monitor Denies chest pain, SOB, dizziness, nausea, abdominal pain Discussed with cardiology today Family at bedside Review of Systems Review of Systems: All systems reviewed & are unremarkable except as noted in HPI & below Physical Exam Physical Exam: Physical Exam: Vitals signs as noted above General Appearance:Moderately built and nourished, no apparent distress, Elderly Head: normocephalic, + traumatic, right intraorbital ecchymosis, hematoma, Upper lip laceration Eyes: normal inspection, EOMI Neck: supple, Trachea midline Respiratory/Chest: Normal breath sounds, CTA Cardiovascular: S1, S2, No murmur, +Bradycardia Abdomen/GI:Soft, Non tender, Bowel sounds present Extremities/Musculoskelatal:normal inspection, no edema Neurologic/Psych:AAOX3, grossly no focal neurological deficits Skin: normal color, warm Results & Data Results & Data ([facility]) Vital Signs (Past 12 Hours) Vital Signs Temp Pulse Pulse Resp BP Pulse Ox 06/07/20 07:42 53 L 06/07/20 07:02 36.7 C 50 L 16 124/76 97 06/07/20 03:58 36.7 C 51 L 16 118/74 95 Laboratory Results Short CBC 06/07/20 Range/Units 05:29 WBC 7.41 (4.8-10.8) K/uL Hgb 14.2 (14.0-18.0) g/dL Hct 42.8 (42-52) % Plt Count 147 (130-400) K/uL BMP 06/07/20 05:29 Sodium 145 Potassium 4.4 Chloride 111 H Carbon Dioxide 30 BUN 28 H Creatinine 1.34 Glucose 85 Calcium 8.8 Urine 06/06/20 Range/Units 16:00 Urine Color Dark Yellow Urine Appearance Clear (Clear) Urine pH 8.5 H (4.5-7.5) Ur Specific [place] 1.023 (1.000-1.030) Urine Protein Negative (Negative) Urine Glucose (UA) Negative (Negative)
--- NOTE | 2020-06-07 14:37 | Cardiology Consultation ---
Date of Consultation June 07, 2020 Assessment & Plan (1) Syncope: (2) Concussion with loss of consciousness: (3) Chronic kidney disease: At this point is not quite clear whether the patient suffered a malignant syncopal event or whether a concussion from lower extremity weakness. Exercise stress test was nondiagnostic due to the patient's inability to keep pace with the treadmill at [place] [facility]. No arrhythmias on monitor. We will consider cardiac catheterization in the a.m., however, should no arrhythmias occur after another 24 hours of telemetry monitoring consideration could be given to performing outpatient Lexiscan stress test instead. Continue to monitor on telemetry. History of Present Illness Reason for Consultation: Syncope Requesting Physician: Dr. Hairston Attending Physician: Kevon Hairston MD History of Present Illness It was my pleasure to see Mr. Davis in consultation today for evaluation of possible syncope. Patient states that he was running a 10 K run when he suddenly started to feel his legs get weak. He tried to maneuver himself over to the grass for a soft landing but did not make. He states that he is not quite sure if he lost consciousness or just does not remember but he did fall and have significant head trauma. There is significant ecchymosis and lacerations around his right orbit and he present to the emergency department. The question arose as to whether he syncopized and cardiology was consult. Been no arrhythmias on monitor overnight. His at similar episodes in the past but not quite this severe. Allergies Allergy/AdvReac Type Severity Reaction Status Date / Time No Known Allergies Allergy Verified 09/30/18 16:06 Home Medications Home Medications Medication Instructions Recorded Confirmed Type loratadine [Claritin] 10 mg PO QAM PRN 09/30/18 06/06/20 History multivitamin 1 tab PO QAM 09/30/18 06/06/20 History acetaminophen [Tylenol] 325 mg PO QID PRN 06/06/20 06/06/20 History calcium citrate 250 mg PO QID 06/06/20 06/06/20 History fluticasone propionate 2 spray INTRANASAL DAILY PRN 06/06/20 06/06/20 History magnesium 400 mg PO .QDL,HS 06/06/20 06/06/20 History menthol [Pain Relief (menthol)] 1 applic TOPICAL TID PRN 09/26/20 09/26/20 History Patient History Medical History Chronic kidney disease Stage III with baseline creatinine of 1.3 Depression History of depression Stopped antidepressants in February 2020 at the direction of his PCP Surgical History H/O cataract removal with insertion of prosthetic lens Family History Other Family history non-contributory Social History Smoking Status: Never smoker Second Hand Exposure: No; Do You Dip or Chew Tobacco: No; Tobacco Cessation Education Requested by Patient: No Hx Alcohol Use: Yes Alcohol type: beer Hx Substance Use: No Preferred Language: Bahraini Communication Ability: Effective Roof Fitter Required: No Beliefs That Will Affect Care: None marital status: Current Living Situation: Spouse Current Living Situation Comment: Resides with current occupational status: retired Other Information That Helps Us Care for You: No Feels Safe at Home: No Is there a partner from a previous relationship who is making you feel unsafe now?: No Any Concerns about Your Family Situation: No Would You Like to Speak to Someone About Your Situation: No Safety Concerns: Feels Safe At This Time Assistive Devices: Glasses Review of Systems Review of Systems: All systems reviewed & are unremarkable except as noted in HPI & below Physical Exam Physical Exam: General: Awake, alert and oriented x 3. No acute distress. HEENT: Normocephalic, significant ecchymosis over the right orbital area with laceration. Pupils equal, round and reactive to light and accommodation. Extraocular muscles are intact. Anicteric sclera. Moist mucous membranes. Neck: No JVD. No bruit. Cardiovascular: Regular. Positive S-4. Normal S-1 and S-2. No S-3. No murmurs or rubs. Pulmonary: Clear to auscultation B/L. No rales, rhonchi or wheezing Abdomen: Bowel sounds x 4, soft. No rebound, guarding or tenderness. No organomegaly. Extremities: No clubbing, cyanosis or edema. +2 pedal pulses bilaterally. Skin: Warm and dry. Results & Data ([facility]) Vital Signs (Past 12 Hours) Vital Signs Temp Pulse Pulse Resp BP Pulse Ox 06/07/20 07:42 53 L 06/07/20 07:02 36.7 C 50 L 16 124/76 97 06/07/20 03:58 36.7 C 51 L 16 118/74 95
[2020-06-08 07:03] LABS: Basophils # (auto) 0.02 K/uL (0-0.2); Basophils % (auto) 0.3 %; Eosinophils % (auto) 1.4 %; Hematocrit (blood only) 41.8 % (42-52); Hemoglobin 13.7 g/dL (14.0-18.0); Immature Granulocytes # (auto) 0.01 K/uL (0.00-0.02); Immature Granulocytes % (auto) 0.1 %; Lymphocytes # (auto) 1.11 K/uL (1.2-3.4); Mean Corpuscular Hemoglobin 32.8 pg (25-34); Mean Corpuscular Hgb Conc 32.8 g/dL (32-36); Mean Platelet Volume 10.2 fL (7.4-10.4); Monocytes # (auto) 0.82 K/uL (0.11-0.59); Monocytes % (auto) 11.1 %; Neutrophils # (auto) 5.32 K/uL (1.4-6.5); Neutrophils % (auto) 72.1 %; Platelet Count 145 K/uL (130-400); RDW Coefficient of Variation 12.2 % (11.5-14.5); RDW Standard Deviation 44.6 fL (36.4-46.3); Red Blood Count 4.18 M/uL (4.7-6.1); White Blood Count 7.38 K/uL (4.8-10.8)
[2020-06-08 07:36] LABS: BUN Creatinine Ratio 17.1 (10-20); Creatinine Clr Calc Pharmacy 44.3 ml/min; Est GFR (African American) 61.5; Est GFR (Non-African American) 53.1; Magnesium 1.9 mg/dl (1.8-2.4); Potassium 3.9 mmol/L (3.5-5.1)
[2020-06-08] MEDS: SODIUM CHLORIDE 0.9% 1000ML 1,000 ML IV SCH (08:38)
[2020-06-08] MEDS: MULTIVITAMIN TAB PO SCH (11:06)
[2020-06-08] MEDS: CALCIUM CITRATE 950 MG TAB PO SCH ×2 (11:06→14:05)
[2020-06-08] MEDS: MAGNESIUM OXIDE 400 MG TAB PO SCH (11:06)
[2020-06-08] MEDS: HEPARIN SOD 5,000 UNIT/0.5 ML VIAL SQ SCH (11:07)
[2020-06-08] MEDS: ASPIRIN 81 MG ECTAB PO SCH (11:07)
--- NOTE | 2020-06-08 14:07 | Cardiology Consultation ---
Date of Consultation June 08, 2020 Assessment & Plan (1) Syncope: (2) Concussion with loss of consciousness: (3) Chronic kidney disease: After witnessing the patient ambulate with great difficulty on treadmill I believe this event was most likely a concussion with loss of consciousness after traumatic fall. Stress testing was nonischemic no inducible arrhythmias. Okay to DC to home from a cardiac standpoint. No medication changes will be made. History of Present Illness Attending Physician: Kevon Hairston MD Allergies Allergy/AdvReac Type Severity Reaction Status Date / Time No Known Allergies Allergy Verified 09/30/18 16:06 Home Medications Home Medications Medication Instructions Recorded Confirmed Type loratadine [Claritin] 10 mg PO QAM PRN 09/30/18 06/06/20 History multivitamin 1 tab PO QAM 09/30/18 06/06/20 History acetaminophen [Tylenol] 325 mg PO QID PRN 06/06/20 06/06/20 History calcium citrate 250 mg PO QID 06/06/20 06/06/20 History fluticasone propionate [Flonase] 2 spray INTRANASAL DAILY PRN 06/06/20 06/06/20 History magnesium 400 mg PO .QDL,HS 06/06/20 06/06/20 History menthol [Pain Relief (menthol)] 1 applic TOPICAL TID PRN 06/06/20 06/06/20 History Patient History Medical History Chronic kidney disease Stage III with baseline creatinine of 1.3 Depression History of depression Stopped antidepressants in February 2020 at the direction of his PCP Surgical History (Updated 06/06/20 @ 15:47 by Jamir Gomez PA-C) H/O cataract removal with insertion of prosthetic lens Family History Other Family history non-contributory Social History Smoking Status: Never smoker Second Hand Exposure: No; Do You Dip or Chew Tobacco: No; Tobacco Cessation Education Requested by Patient: No Hx Alcohol Use: Yes Alcohol type: beer Hx Substance Use: No Preferred Language: Kazakh Communication Ability: Effective Brake Specialist Required: No Beliefs That Will Affect Care: None marital status: Current Living Situation: Spouse Current Living Situation Comment: Resides with current occupational status: retired Other Information That Helps Us Care for You: No Feels Safe at Home: No Is there a partner from a previous relationship who is making you feel unsafe now?: No Any Concerns about Your Family Situation: No Would You Like to Speak to Someone About Your Situation: No Safety Concerns: Feels Safe At This Time Assistive Devices: Glasses Results & Data ([facility]) Vital Signs (Past 12 Hours) Vital Signs Temp Pulse Pulse Resp BP BP Pulse Ox 06/08/20 11:30 63 06/08/20 08:09 36.5 C 51 L 20 130/75 95 06/08/20 07:00 36.5 C 54 L 18 138/81 97 06/08/20 04:06 36.6 C 54 L 18 141/77 H 96
--- NOTE | 2020-06-08 14:10 | Cardiology Progress Note ---
Date of Service June 08, 2020 Assessment & Plan (1) Syncope: (2) Concussion with loss of consciousness: (3) Chronic kidney disease: After witnessing the patient ambulate with great difficulty on treadmill I believe this event was most likely a concussion with loss of consciousness after traumatic fall. Stress testing was nonischemic no inducible arrhythmias. Okay to DC to home from a cardiac standpoint. No medication changes will be made. Admission and Anticipated Discharge Date Admission Date: June 07, 2020 Subjective Patient seen and examined, chart reviewed. No complaints overnight and continues to deny any chest pain, shortness of breath, palpitations, lightheadedness or dizziness. Telemetry reviewed: Normal sinus rhythm without arrhythmia or significant ectopy. Review of Systems Review of Systems: All systems reviewed & are unremarkable except as noted in HPI & below Physical Exam Physical Exam: General: Awake, alert and oriented x 3. No acute distress. HEENT: Normocephalic, significant ecchymosis over the right orbital area with laceration. Pupils equal, round and reactive to light and accommodation. Extraocular muscles are intact. Anicteric sclera. Moist mucous membranes. Neck: No JVD. No bruit. Cardiovascular: Regular. Positive S-4. Normal S-1 and S-2. No S-3. No murmurs or rubs. Pulmonary: Clear to auscultation B/L. No rales, rhonchi or wheezing Abdomen: Bowel sounds x 4, soft. No rebound, guarding or tenderness. No organomegaly. Extremities: No clubbing, cyanosis or edema. +2 pedal pulses bilaterally. Skin: Warm and dry. Results & Data ([facility]) Vital Signs (Past 12 Hours) Vital Signs Temp Pulse Pulse Resp BP BP Pulse Ox 06/08/20 11:30 63 06/08/20 08:09 36.5 C 51 L 20 130/75 95 06/08/20 07:00 36.5 C 54 L 18 138/81 97 06/08/20 04:06 36.6 C 54 L 18 141/77 H 96
--- NOTE | 2020-06-08 14:12 | Hospitalist Progress Note ---
Date of Service June 08, 2020 Assessment & Plan (1) Syncope: Syncope: Concussion w loss of consciousness of unspecified duration Facial Trauma /Right infra orbital hematoma Fall H/O falls in the past with the least one syncopal event CT head:. No acute intracranial abnormality or calvarial fracture. Moderate sized right infraorbital hematoma. Face CT:Moderate right infraorbital/right cheek hematoma. No acute facial bone fracture. Neck CT:No acute fracture or subluxation. Normal Orthostatics ECHO: Normal LV chamber size and wall thickness. Normal LV systolic function, EF 55 to 60%. No segmental left ventricular wall motion abnormalities. Grade 2 diastolic dysfunction. Mild aortic regurgitation. Mild tricuspid regurgitation. Monitor on Tele Exercise Stress Test: Nonischemic exercise stress echocardiogram. Decreased workload decreases sensitivity for ischemia. No inducible arrhythmias. Testing terminated due to patient's inability to keep pace with stage I of Evans protocol. No plan for further cardiac investigations Appreciate Cardiology Input Fall precautions Received IV fluids Advised to follow-up with cardiology as outpatient if recurrence of his symptoms LILIAN on CKD III Likely prerenal DC IV fluids Cr back to baseline Monitor renal function Avoid nephrotoxic agents as able H/O Depression: Previously on SSRIs 3 months--DCed by PCP Mood Stable Sinus Bradycardia: Likely physiological BPH: Not on Meds Bladder Scan PRN DVT Px: Heparin SQ Code Status Full Code Disposition Plan to discharge home today Admission and Anticipated Discharge Date Admission Date: June 07, 2020 Subjective Patient is seen and examined at bedside Offers no new complaints today No plan for cardiac catheterization as per cardiology Discussed with cardiology today Denies chest pain, SOB, dizziness, nausea, abdominal pain Family at bedside Eager to get discharged Review of Systems Review of Systems: All systems reviewed & are unremarkable except as noted in HPI & below Physical Exam Physical Exam: Physical Exam: Vitals signs as noted above General Appearance:Moderately built and nourished, no apparent distress, Elderly Head: normocephalic, + traumatic, right intraorbital ecchymosis, hematoma, Upper lip laceration Eyes: normal inspection, EOMI Neck: supple, Trachea midline Respiratory/Chest: Normal breath sounds, CTA Cardiovascular: S1, S2, No murmur, +Bradycardia Abdomen/GI:Soft, Non tender, Bowel sounds present Extremities/Musculoskelatal:normal inspection, no edema Neurologic/Psych:AAOX3, grossly no focal neurological deficits Skin: normal color, warm Results & Data Results & Data ([facility]) Vital Signs (Past 12 Hours) Vital Signs Temp Pulse Pulse Resp BP BP Pulse Ox 06/08/20 11:30 63 06/08/20 08:09 36.5 C 51 L 20 130/75 95 06/08/20 07:00 36.5 C 54 L 18 138/81 97 06/08/20 04:06 36.6 C 54 L 18 141/77 H 96 Laboratory Results Short CBC 06/08/20 Range/Units 06:34 WBC 7.38 (4.8-10.8) K/uL Hgb 13.7 L (14.0-18.0) g/dL Hct 41.8 L (42-52) % Plt Count 145 (130-400) K/uL BMP 06/08/20 06:34 Sodium 143 Potassium 3.9 Chloride 112 H Carbon Dioxide 26 BUN 21 H Creatinine 1.24 Glucose 91 Calcium 9.0
--- NOTE | 2020-06-08 14:15 | Discharge Summary ---
Date of Service June 08, 2020 Admission HPI Per Admitting Provider Attending: Dr. Campbell This is an 85-year-old male with no significant past medical history other than history of depression for which he stopped medication about 3 months ago at the direction of his primary care physician and chronic kidney disease stage III with a baseline creatinine of 1.3. He is on antihistamines for seasonal allergies and a magnesium supplement. He is on no prescribed medications. The patient is a regular runner. He was running a 10K this morning and felt odd. He began to have for the grass in case he fell. Unfortunately he had a syncopal event prior to reaching the grass. He has no defensive wounds on his hands or arms or elbows but does have a large area of ecchymosis and hematoma at the right eye extending to the lower earlobe on the right side. He has some small lacerations which were repaired with sutures. He has no knee pain or leg pain. He denies any chest pain or tightness. He has no shortness of breath. He had no other prodrome prior to his fall. He denies any ectopy or palpitations at the time or following the fall. He did have loss of consciousness and does not remember the timeframe from falling until awakening in the ambulance. This is a patient's fourth fall event while running. The first event was September 2017 when he was running first night and was 0 F during his run. He reports coming home and taking a hot shower and then passing out at the bed. He had a stress echocardiogram at the time which showed no induced ischemia and preserved left ventricular ejection fraction. The patient then had 2 events where he was struck by dogs while running causing tripping and falls. He denies any syncope or neurological events for those 2 events. The patient denies any other fall events around the home. He has no ambulatory dysfunction. He denies any other syncope or presyncope, lightheadedness, dizziness, chest pain at rest, chest pain with exertion, shortness of breath, dyspnea with exertion, blurred vision, heat flashes, chills, dysuria. He has no known active bleeding. He still has a spleen. 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 He has no other chronic disease. Admission Exam Per Admitting Provider Physical Exam Physical Exam: GENERAL : No acute distress. Talkative with no demonstration of residual dyspnea EYES: No icterus, gaze conjugate. Pupils are equal round and reactive to light. There is a large area of ecchymosis with hematoma at the right eye. Tender to palpitation but no evidence of bone fragment. NOSE: Evidence of epistaxis but no current bleeding. MOUTH: No lesions or candidiasis. Tongue is midline. No facial droop. NECK: Supple. No appreciation of carotid bruits bilaterally. LUNGS: CTA B/L, no wheezes, rales or rhonchi. Good inspiratory effort HEART: Regular, rate controlled in the 60s. No appreciation of ectopy. ABDOMEN: Soft, NT, ND, BS Present EXTREMITIES: No LE edema, pedal pulses intact and equal bilaterally NEURO: A&OX3. Negative pronator drift. Pupils equal round react to light. Tongue is midline. No facial droop. No evidence of CVA or other focal neurological deficit. Cranial nerves II through XII appear grossly intact. Principal Diagnosis Syncope--Likely Concussion secondary to fall Traumatic Fall Facial Trauma Acute Kidney Injury Discharge Data Allergies Allergy/AdvReac Type Severity Reaction Status Date / Time No Known Allergies Allergy Verified 09/30/18 16:06 Consultations 06/06/20 14:59 ED Decision to Admit Stat 06/06/20 17:14 Consult Cardiology Routine Procedures Performed CT head:. No acute intracranial abnormality or calvarial fracture. Moderate sized right infraorbital hematoma. Face CT:Moderate right infraorbital/right cheek hematoma. No acute facial bone fracture. Neck CT:No acute fracture or subluxation. ECHO: Normal LV chamber size and wall thickness. Normal LV systolic function, EF 55 to 60%. No segmental left ventricular wall motion abnormalities. Grade 2 diastolic dysfunction. Mild aortic regurgitation. Mild tricuspid regurgitation. Ordered Studies 06/06/20 13:09 CT cervical spine wo con Stat CT facial bones wo con Stat CT head/brain wo con Stat Hospital Course (1) Syncope: Syncope: Concussion w loss of consciousness of unspecified duration Facial Trauma /Right infra orbital hematoma Fall H/O falls in the past with the least one syncopal event CT head:. No acute intracranial abnormality or calvarial fracture. Moderate sized right infraorbital hematoma. Face CT:Moderate right infraorbital/right cheek hematoma. No acute facial bone fracture. Neck CT:No acute fracture or subluxation. Normal Orthostatics ECHO: Normal LV chamber size and wall thickness. Normal LV systolic function, EF 55 to 60%. No segmental left ventricular wall motion abnormalities. Grade 2 diastolic dysfunction. Mild aortic regurgitation. Mild tricuspid regurgitation. Monitor on Tele Exercise Stress Test: Nonischemic exercise stress echocardiogram. Decreased workload decreases sensitivity for ischemia. No inducible arrhythmias. Testing terminated due to patient's inability to keep pace with stage I of Evans protocol. No plan for further cardiac investigations Appreciate Cardiology Input Fall precautions Received IV fluids Advised to follow-up with cardiology as outpatient if recurrence of his symptoms LILIAN on CKD III Likely prerenal DC IV fluids Cr back to baseline Monitor renal function Avoid nephrotoxic agents as able H/O Depression: Previously on SSRIs 3 months--DCed by PCP Mood Stable Sinus Bradycardia: Likely physiological BPH: Not on Meds Bladder Scan PRN DVT Px: Heparin SQ Code Status Full Code Disposition Plan to discharge home today Total Time Total Time Spent Total Time Spent (In Minutes): 39 minutes Total Time Includes: Examination of the Patient, Discharge Planning, Medication Reconciliation, Communication With Other Providers and Other Discharge Plan Discharge Items Patient Disposition: Home - Self-Care Reason For Visit: SYNCOPE Discharge Diagnosis: Syncope Fall Facial Trauma Dehydration Activity: Per Instructions section Exercise/Sports: Gradually increase as tolerated Non-emergency contact: Primary Care Provider Call non-emergency contact if: you have any medication questions, your symptoms worsen, your pain is not controlled, your pain is worsening, your pain is unusual for you, your pain is concerning for you, you have a fever, your wound has increased redness, your wound has increased drainage and your wound pain has increased Follow-up/Referrals: James Hernandez MD [Primary Care Provider] - Diet: Heart Healthy Addtl Attending Provider Instructions: Follow up with your Primary Care Physician on Jun 11, 2020 at 2: 00 PM Consider following with your Trimmer Climber as recommended by your Trimmer Climber Seek immediate medical attention if your symptoms reoccur or worsen Pending Studies at Discharge: No Stand-Alone Forms: My [employer], Smoking Cessation Medications and DC Order Prescriptions: Continued acetaminophen [Tylenol] 325 mg Tablet 325 mg PO QID PRN (Reason: Pain) RF: 0 fluticasone propionate 50 mcg/actuation [place],Suspension 2 spray INTRANASAL DAILY PRN (Reason: Allergy Symptoms) RF: 0 magnesium 200 mg Tablet 400 mg PO .QDL,HS RF: 0 menthol [Pain Relief (menthol)] Gel 1 applic TOPICAL TID PRN (Reason: Pain) RF: 0 calcium citrate 250 mg calcium Tablet 250 mg PO QID RF: 0 multivitamin Tablet 1 tab PO QAM RF: 0 loratadine [Claritin] 10 mg Tablet 10 mg PO QAM PRN (Reason: Congestion) RF: 0 Discharge Orders: Discharge Order (Routine); Ordered 06/08/20 Ordered By: Kevon Antonio/Other Patient Handouts: After a Concussion Admission Data Admit Date/Time: 06/07/20 14:15 Attending Provider: Kevon Hairston Admit Provider: Lalo Campbell Primary Care Provider: James Hernandez Other Providers: Kevon Hairston ; Georges Willis Other Interventions: Discharge Summary Assessment (RN) Last Done: 06/08/20 14:49
--- NOTE | 2020-06-09 05:55 | Electrocardiogram Report ---
Test Reason : Blood Pressure : / mmHG Vent. Rate : 060 BPM Atrial Rate : 060 BPM P-R Int : 138 ms QRS Dur : 088 ms QT Int : 412 ms P-R-T Axes : 051 043 012 degrees QTc Int : 412 ms Sinus rhythm with marked sinus arrhythmia Nonspecific ST abnormality Abnormal ECG When compared with ECG of 07-JUN-2020 07:15, No significant change was found Confirmed by Michael Almaraz ([id number]) on 06/09/2020 5:55:05 AM Referred By: REFERRED SELF Confirmed By:Michael Almaraz
== END 2020-06-08 15:22 | disposition home or self-care (01) ==
LOC: ED 12:55 → 2S 12:55 → SUATTDRO 15:42 → 2S 16:25
DX: N18.3 Chronic kidney disease, stage 3 (moderate); N40.0 Benign prostatic hyperplasia without lower urinary tract symptoms; W19.XXXA Unspecified fall, initial encounter; Z87.891 Personal history of nicotine dependence; S01.511A Laceration without foreign body of lip, initial encounter; S01.91XA Laceration without foreign body of unspecified part of head, initial encounter; S80.211A Abrasion, right knee, initial encounter; S06.0X9A Concussion with loss of consciousness of unspecified duration, initial encounter; N17.9 Acute kidney failure, unspecified; R55 Syncope and collapse; Y93.02 Activity, running